=== PATIENT | male | born 1980 | race Caucasian/White ===

== ENCOUNTER 2016-02-28 14:21 | Inpatient (IN) ==
[2016-02-28] MEDS ORDERED: *HR* LORazepam 2 MG/ML VIAL IM PRN (14:37)
[2016-02-28] MEDS ORDERED: Mag Hydrox/Al Hydrox/Simeth 30 ML UDC PO PRN (14:37)
[2016-02-28] MEDS ORDERED: Haloperidol Lactate 5 MG/ML VIAL IM PRN (14:37)
[2016-02-28] MEDS ORDERED: *HR* LORazepam 1 MG TABLET PO PRN (14:37)
[2016-02-28] MEDS ORDERED: MOM Conc 10 ML UD.LIQ PO PRN (14:37)
[2016-02-28] MEDS ORDERED: Ibuprofen 400 MG TABLET PO PRN (14:37)
[2016-02-28] MEDS: clonazePAM 0.5 MG TABLET PO PRN ×2 (15:23→21:02)
[2016-02-28] MEDS: traZODone 50 MG TABLET PO PRN (21:02)
[2016-02-28] MEDS: Lithium Carbonate 300 MG CAPSULE PO SCH (21:02)
[2016-02-29] MEDS: amLODIPine 5 MG TABLET PO SCH (09:48)
[2016-02-29] MEDS: clonazePAM 0.5 MG TABLET PO PRN ×2 (09:50→21:04)
--- NOTE | 2016-02-29 10:47 | Psychiatry History & Physical ---
Date of Encounter: 02/29/16 Time of Encounter: 11:00 History of Present Illness Patient Stated Chief Complaint: "I don't want to live but I guess I don't want to either." Medicare Admission Attestation: For traditional Medicare patients the provided hospital inpatient services are reasonable and necessary and in the case of services not specified as inpatient -only under 42 CFR 419.22 (n), that they are appropriately provided as inpatient services in accordance 42 CFR 412.3. For Critical Access Hospital the patient may reasonably be expected to be discharged or transferred to a hospital within 96 hours after admission to the Critical Access Hospital. Admitted From: Emergency Dept History of Present Illness: Mr. Suarez is a 35 year old male with a long-standing history of alcohol dependence, bipolar disorder type I who presented to the hospital after overdosing on 22 ibuprofen tablets. Patient states that he has been feeling more stressed lately because he will be transitioning to an apartment close to respite rather than living in the respite home. Also, patient's children recently talked to him and told him that they did not want to be a part of his life any longer. Patient has been struggling with depression for many months now. He has multiple admissions in 2016 related to severe depression. He did try ECT at [facility] and underwent 4 treatments but states that the side effects were severe and he does not want ECT any longer. He states that he did take the pills and then immediately told staff that [facility] that he overdosed on medication. He guesses that maybe he does not really want to . However, patient continues to have suicidal ideation on a daily basis and reports today that he feels like he no longer wants to live. He has no hope about medications or other treatments helping with his depression. He denies auditory or visual hallucinations right now. He denies obsessions, delusions, paranoia. Past Med Surg Social Fam HX - Past Medical History Medical history: hyperlipidemia, hypertension - Past Psychiatric History Psychiatric history: Reports: bipolar, prior suicide attempt, previous psychiatric hospitalization Past psychiatric history details: Patient has a history of multiple suicide attempts. He has multiple psychiatric admissions for depressive and manic episodes. Family psychiatric history: Yes Family Psychiatric History Details: Multiple family members have bipolar disorder. Family History of Suicide: Attempted - Past Surgical History Surgical History: no surgical history - Social History Smoking Status: Current every day smoker Smokeless Tobacco Status: No Alcohol use: none Drug use: none Occupational status: disabled Current living situation: Long-Term Activity Level: Independent ambulation - Family History Mother Living Status: Still Living Hx Family Cardiac Disorders: Yes Hx Family Respiratory Disorders: No Hx Family Cancer: No Hx Family GI Disorders: No Hx Family Endocrine Disorder: Yes (Thyroid dx) Hx Family Neuromuscular Disorders: No Hx Family Neurologic Disorders: No Hx Family HEENT Disorders: No Hx Family Autoimmune Disorders: No Medications & Allergies [place] Carbonate 300 mg PO DAILY 11/30/15 [History] Lisinopril [Zestril] 10 mg PO DAILY 02/27/16 [History] Lurasidone HCl [Latuda] 40 mg PO HS 02/27/16 [History] Vortioxetine Hydrobromide [Trintellix] 5 mg PO DAILY 02/27/16 [History] Buspirone HCl [Buspar] 10 mg PO BID #60 tablet 02/28/16 [Rx] ClonazePAM [Klonopin] 0.5 mg PO TID PRN #30 02/28/16 [Rx] Cyanocobalamin (Vitamin B-12) [Vitamin B-12] 100 mcg PO DAILY #90 tablet [Rx] Ergocalciferol (VITAMIN D2) [Drisdol (50,000 Unit)] 50,000 unit PO 2XW #20 capsule 02/28/16 [Rx] Omeprazole [PriLOSEC] 40 mg PO DAILY #30 capsule.dr 02/28/16 [Rx] Phos-NaK [Neutra-Phos] 1 each PO DAILY #30 powd.pack 02/28/16 [Rx] Thiamine HCl 250 mg PO DAILY #30 tablet 02/28/16 [Rx] Allergies No Known Allergies Allergy (Verified 09/24/15 02:06) Review of Systems Constitutional: Denies: fever, chills, weakness, weight change Eyes: Denies: eye pain, vision change Ears, Nose, Throat: Denies: ear pain, throat pain, dental pain, hearing loss, congestion Cardiovascular: Denies: chest pain, palpitations, dyspnea on exertion Respiratory: Denies: cough, dyspnea, wheezes Gastrointestinal: Denies: abdominal pain, nausea, vomiting, diarrhea, constipation Genitourinary male: Denies: urgency, dysuria, frequency, genital lesions Genitourinary female: Denies: urgency, dysuria, frequency, abnormal menses, dyspareunia Musculoskeletal: Denies: joint swelling, joint pain Integumentary: Denies: rash, lesions, pruritus Neurological: Denies: headache, weakness, numbness, memory loss Psychiatric: Reports: depression, abnormal sleep pattern, suicidal ideation, difficulty concentrating, hopelessness, irritability, mood swings. Denies: homicidal ideation Endocrine: Denies: fatigue, heat or cold intolerance Hematologic/Lymphatic: Denies: easy bruising, lymphadenopathy Allergic/Immunologic: Denies: urticaria, itchy eyes Mental Status Exam Patient orientation: Yes Person, Yes Time, Yes Place Level of alertness: Alert Patient appearance: Unkempt Behavior: cooperative, tearful, withdrawn Psychomotor activity: Slowed Eye contact: Minimal Contact Mood description: Depressed Affect description: flat Speech pattern: Normal rate, Normal rhythm, Normal tone Speech volume: Normal Thought process: Intact Thought content: Yes Suicidal ideation, No Homicidal ideation Perceptual disturbances: No Auditory hallucinations, No Visual hallucinations Attention span: Capable of Focused Attention Memory description: Grossly Intact Patient reliability: Reliable Historian Intelligence estimate: Average Judgment: Limited Insight: Minimal Results - Vital Signs Vital signs: Temp Pulse Resp BP 97.9 F 80 18 136/88 02/29/16 09:00 02/29/16 09:00 02/29/16 09:00 02/29/16 09:00 Assessment and Plan (1) Bipolar disorder with severe depression Current visit: No Status: Acute Plan: Admit inpatient for safety and stabilization, Close observation, Suicide Precautions per unit protocol, Encourage participation in unit milieu, Group Therapy, Monitor sleep, Monitor appetite Additional Plan: We will admit to 1 a for psychiatric stabilization. Review outpatient records for complete overview of recent changes in patient's medications. Monitor patient's behavior and encourage group attendance. Encourage positive coping strategies. Restart home medications. Risks, benefits, side effects, alternatives discussed w/pt: Yes Patient agreeable to treatment: Yes Plans for Post Hospital Care: Home Estimated Length of Stay (Days): 3 (2) Anxiety Current visit: No Status: Acute Plan: Admit inpatient for safety and stabilization, Close observation, Suicide Precautions per unit protocol, Encourage participation in unit milieu, Group Therapy, Monitor sleep, Monitor appetite Additional Plan: Continue clonazepam as needed for anxiety. Risks, benefits, side effects, alternatives discussed w/pt: Yes Patient agreeable to treatment: Yes Plans for Post Hospital Care: Home
[2016-02-29] MEDS: Lithium Carbonate 300 MG CAPSULE PO SCH (21:05)
[2016-02-29] MEDS: traZODone 50 MG TABLET PO PRN (21:05)
[2016-03-01] MEDS: amLODIPine 5 MG TABLET PO SCH (08:32)
[2016-03-01] MEDS: clonazePAM 0.5 MG TABLET PO PRN ×3 (08:32→20:42)
[2016-03-01] MEDS: Nicotine 2 MG GUM BC PRN ×2 (09:04→17:06)
--- NOTE | 2016-03-01 13:24 | Psychiatry Progress Note ---
Date of Encounter: 03/01/16 Time of Encounter: 13:00 Subjective Interval history: Kamala is seen today for follow-up. He reports that he does still feel depressed and he struggles with his hopelessness. He denies wanting to kill himself today. Patient states that he talked to his daughter and his daughter may him feel more hopeful. Patient continues to struggle with concerns about moving to an apartment from living at the longterm. Patient states that he worries that he has become institutionalized because of how often he has been admitted before in group homes. He is fearful that he will be able to take care of himself when he is on his own. Encourage the patient to start thinking about what will need to be done when he has an apartment. Discussed patient should make a list of things she needs to accomplish before he feels ready to move to an apartment. Patient reports that he has when he returns back to the respite he will probably have restricted ability to leave the area as he overdosed by telling the staff at [facility] that he was going for a walk. Review of Systems Psychiatric: Reports: depression, abnormal sleep pattern, difficulty concentrating, hopelessness, irritability, mood swings. Denies: homicidal ideation Objective: Exam Patient orientation: Yes Person, Yes Time, Yes Place Level of alertness: Alert Patient appearance: Well-nourished, Unkempt Behavior: calm, cooperative, withdrawn Psychomotor activity: Slowed Eye contact: Minimal Contact Mood description: Depressed Affect description: constricted, flat Speech pattern: Normal rate, Normal rhythm, Normal tone Speech volume: Normal Thought process: Intact Thought content: No Suicidal ideation, No Homicidal ideation Perceptual disturbances: No Auditory hallucinations, No Visual hallucinations Judgment: Limited Insight: Minimal Results - Vital Signs Vital Signs: Temp Pulse Resp BP 98 F 74 16 121/78 03/01/16 09:00 03/01/16 09:00 03/01/16 09:00 03/01/16 09:00 Assessment and Plan (1) Bipolar disorder with severe depression Current visit: No Status: Acute Plan: Continue hospitalization, Close observation, Suicide Precautions per unit protocol, Encourage participation in unit milieu, Group Therapy, Monitor sleep, Monitor appetite Additional Plan: Patient seems to be improving without medication changes. We will continue to monitor and try to contact patient's outpatient provider about possible medication changes need to be made. Patient is on Tintellix outside of the hospital. We could consider increasing the dosage when he returns to place an adult clinic. Continue to monitor behavior and encourage group attendance. Encouraged patient to plan ahead and continue using his coping skills to decrease anxiety level. Risks, benefits, side effects, alternatives discussed w/pt: Yes Patient agreeable to treatment: Yes (2) Anxiety Current visit: No Status: Acute Plan: Continue hospitalization, Close observation, Suicide Precautions per unit protocol, Encourage participation in unit milieu, Group Therapy, Monitor sleep, Monitor appetite Additional Plan: Continue clonazepam as needed for anxiety. Risks, benefits, side effects, alternatives discussed w/pt: Yes Patient agreeable to treatment: Yes Consult Discharge Plan - Plan Referrals: [facility] [Outside] - 03/06/16 9:20 am (The above appointment is with Dr. Garcia.) [facility] [Outside] (You are returning to respite at [facility] on discharge from the hospital. While there, you will be seen daily by the clinic counselors and director of casework services.)
[2016-03-01] MEDS: Lithium Carbonate 300 MG CAPSULE PO SCH (20:35)
[2016-03-02] MEDS: amLODIPine 5 MG TABLET PO SCH (09:24)
[2016-03-02] MEDS: clonazePAM 0.5 MG TABLET PO PRN ×3 (09:24→21:24)
--- NOTE | 2016-03-02 12:28 | Psychiatry Progress Note ---
Date of Encounter: 03/02/16 Time of Encounter: 11:50 Subjective Interval history: Patient seen today for follow-up. He remains depressed with intermittent suicidal thoughts with no plan. Patient does not appear to be engaging in a lot of the group activities. Encourage the patient to attend groups and try to gain something from them. Patient would like to go back to [facility]. He denies side effects of his current medications. He reports that he was not taking the Trintellix outside of the hospital. "My doctor discontinued this one." Review of Systems Psychiatric: Reports: depression, abnormal sleep pattern, suicidal ideation, difficulty concentrating, hopelessness, irritability, mood swings. Denies: homicidal ideation Objective: Exam Patient orientation: Yes Person, Yes Time, Yes Place Level of alertness: Alert Patient appearance: Well-nourished, Unkempt Behavior: calm, cooperative, withdrawn Psychomotor activity: Slowed Eye contact: Fleeting Contact Mood description: Depressed Affect description: constricted, flat Speech pattern: Normal rate, Normal rhythm, Normal tone Speech volume: Normal Thought process: Intact Thought content: Yes Suicidal ideation, No Homicidal ideation Perceptual disturbances: No Auditory hallucinations, No Visual hallucinations Judgment: Limited Insight: Minimal Results - Vital Signs Vital Signs: Temp Pulse Resp BP 97.9 F 65 16 138/92 03/02/16 09:00 03/02/16 09:00 03/02/16 09:00 03/02/16 09:00 Assessment and Plan (1) Bipolar disorder with severe depression Current visit: No Status: Acute Plan: Continue hospitalization, Close observation, Suicide Precautions per unit protocol, Encourage participation in unit milieu, Group Therapy, Monitor sleep, Monitor appetite Additional Plan: Discussed with patient that he has been on multiple medications and some of the medications that we could try we cannot give him a prescription for initially leaves the hospital. We will increase lithium daily at bedtime. We also discussed the patient needs to be attending group and unit activities as part of his treatment. Continue to monitor closely and facilitate transfer back to respite when patient is stable. Risks, benefits, side effects, alternatives discussed w/pt: Yes Patient agreeable to treatment: Yes (2) Anxiety Current visit: No Status: Acute Plan: Continue hospitalization, Close observation, Suicide Precautions per unit protocol, Encourage participation in unit milieu, Group Therapy, Monitor sleep, Monitor appetite Additional Plan: Continue clonazepam as needed for anxiety. Encourage positive coping strategies. Risks, benefits, side effects, alternatives discussed w/pt: Yes Patient agreeable to treatment: Yes Consult Discharge Plan - Plan Referrals: [facility] [Outside] - 03/06/16 9:20 am (The above appointment is with Dr. Garcia.) [facility] [Outside] (You are returning to respite at [facility] on discharge from the hospital. While there, you will be seen daily by the clinic counselors and casey saw operator.)
[2016-03-02] MEDS: Nicotine 2 MG GUM BC PRN (15:12)
[2016-03-02] MEDS: Lithium Carbonate 300 MG CAPSULE PO SCH (21:24)
[2016-03-03] MEDS: amLODIPine 5 MG TABLET PO SCH (08:44)
--- NOTE | 2016-03-03 12:35 | Psychiatry Progress Note ---
Date of Encounter: 03/03/16 Time of Encounter: 12:14 Subjective Interval history: Patient seen and interviewed. History and physical examination reviewed. Patient continued to endorse hopeless and helpless feelings. His suicidal ideation has started to subside. But patient is still unable to verbalize a safety plan. The patient was counseled extensively regarding coping skills and encouraged to work on a safety plan. Patient is tolerating medications fairly well. Sleep and appetite has improved. Review of Systems Psychiatric: Reports: depression, abnormal sleep pattern, difficulty concentrating, hopelessness, irritability, mood swings. Denies: suicidal ideation, homicidal ideation Objective: Exam Patient orientation: Yes Person, Yes Time, Yes Place Level of alertness: Alert Patient appearance: Well-nourished, Unkempt Behavior: calm, cooperative, withdrawn Psychomotor activity: Slowed Eye contact: Fleeting Contact Mood description: Depressed Affect description: constricted, flat Speech pattern: Normal rate, Normal rhythm, Normal tone Speech volume: Normal Thought process: Intact Thought content: No Suicidal ideation, No Homicidal ideation Perceptual disturbances: No Auditory hallucinations, No Visual hallucinations Judgment: Limited Insight: Minimal Additional Findings: Patient is endorsing hopelessness and helplessness. Unable to verbalize a safety plan and is unable to contract for safety off the unit. Results - Vital Signs Vital Signs: Temp Pulse Resp BP 97.8 F 75 16 126/81 03/03/16 09:00 03/03/16 09:00 03/03/16 09:00 03/03/16 09:00 Assessment and Plan (1) Bipolar disorder, curr episode depressed, severe, w/psychotic features Current visit: No Status: Acute Plan: Continue hospitalization, Close observation, Suicide Precautions per unit protocol, Encourage participation in unit milieu, Group Therapy, Monitor sleep, Monitor appetite, Secure weapons, Family/Supportive other meeting Additional Plan: Continue with the current medication regimen. Encouraged to work on a safety plan. Consult Discharge Plan - Plan Referrals: [facility] [Outside] - 03/06/16 9:20 am (The above appointment is with Dr. Garcia.) [facility] [Outside] (You are returning to respite at [facility] on discharge from the hospital. While there, you will be seen daily by the clinic counselors and housing case manager.)
[2016-03-03] MEDS: clonazePAM 0.5 MG TABLET PO PRN ×2 (12:52→19:48)
[2016-03-03] MEDS: traZODone 50 MG TABLET PO PRN (21:22)
[2016-03-03] MEDS: Lithium Carbonate 300 MG CAPSULE PO SCH (21:22)
[2016-03-04] MEDS: amLODIPine 5 MG TABLET PO SCH (08:57)
[2016-03-04] MEDS: clonazePAM 0.5 MG TABLET PO PRN ×2 (08:59→20:44)
--- NOTE | 2016-03-04 12:17 | Psychiatry Progress Note ---
Date of Encounter: 03/04/16 Time of Encounter: 11:06 Subjective Interval history: Patient seen and interviewed. He continued to endorse depressive feelings and hopeless thoughts but denies any suicidal ideations. Patient is working on a safety plan and able to verbalize some good coping skills. He is tolerating medications fairly well. We discussed disposition plan patient thinks he will be ready to go back to [facility] tomorrow. He will continue to work on a safety plan. Overall making progress. Possible discharge tomorrow. Review of Systems Psychiatric: Reports: depression, hopelessness. Denies: suicidal ideation, homicidal ideation Objective: Exam Patient orientation: Yes Person, Yes Time, Yes Place Level of alertness: Alert Patient appearance: Well-nourished, Unkempt Behavior: calm, cooperative Psychomotor activity: Slowed Eye contact: Maintains Eye Contact Mood description: Depressed Affect description: constricted Speech pattern: Normal rate, Normal rhythm, Normal tone Speech volume: Normal Thought process: Intact Thought content: No Suicidal ideation, No Homicidal ideation Perceptual disturbances: No Auditory hallucinations, No Visual hallucinations Judgment: Limited Insight: Minimal Results - Vital Signs Vital Signs: Temp Pulse Resp BP 97.7 F 80 16 135/95 03/04/16 09:00 03/04/16 09:00 03/04/16 09:00 03/04/16 09:00 Assessment and Plan (1) Bipolar disorder with severe depression Current visit: No Status: Acute Plan: Continue hospitalization, Close observation, Suicide Precautions per unit protocol, Encourage participation in unit milieu, Group Therapy, Monitor sleep, Monitor appetite Additional Plan: Continue with current regime of medications. Possible discharge tomorrow. Risks, benefits, side effects, alternatives discussed w/pt: Yes Patient agreeable to treatment: Yes (2) Bipolar disorder, curr episode depressed, severe, w/psychotic features Current visit: No Status: Acute Plan: Continue hospitalization, Close observation, Suicide Precautions per unit protocol, Encourage participation in unit milieu, Group Therapy, Monitor sleep, Monitor appetite, Secure weapons, Family/Supportive other meeting (3) Anxiety Current visit: No Status: Acute Plan: Continue hospitalization, Close observation, Suicide Precautions per unit protocol, Encourage participation in unit milieu, Group Therapy, Monitor sleep, Monitor appetite Additional Plan: Anxiety is under good control . Possible discharge tomorrow Risks, benefits, side effects, alternatives discussed w/pt: Yes Patient agreeable to treatment: Yes Consult Discharge Plan - Plan Referrals: [facility] [Outside] - 03/06/16 9:20 am (The above appointment is with Dr. Garcia.) [facility] [Outside] (You are returning to respite at [facility] on discharge from the hospital. While there, you will be seen daily by the clinic counselors and case worker.)
[2016-03-04] MEDS: traZODone 50 MG TABLET PO PRN (20:39)
[2016-03-04] MEDS: Lithium Carbonate 300 MG CAPSULE PO SCH (20:39)
[2016-03-05 08:33] VITALS: BP 134/95
[2016-03-05] MEDS: amLODIPine 5 MG TABLET PO SCH (08:44)
[2016-03-05] MEDS: clonazePAM 0.5 MG TABLET PO PRN ×2 (08:45→13:23)
--- NOTE | 2016-03-05 13:42 | Discharge Summary ---
Date of Encounter: 03/06/16 Time of Encounter: 13:39 Diagnosis - Discharge Diagnosis (1) Bipolar disorder, curr episode depressed, severe, w/psychotic features Priority: Primary Status: Chronic Medications - Discharge Medications Prescriptions: TraZODone 50 mg PO HS PRN #30 tablet PRN Reason: Insomnia [place] Carbonate 300 mg PO DAILY 11/30/15 [History] Lisinopril [Zestril] 10 mg PO DAILY 02/27/16 [History] Lurasidone HCl [Latuda] 40 mg PO HS 02/27/16 [History] Vortioxetine Hydrobromide [Trintellix] 5 mg PO DAILY 02/27/16 [History] Buspirone HCl [Buspar] 10 mg PO BID #60 tablet 02/28/16 [Rx] ClonazePAM [Klonopin] 0.5 mg PO TID PRN #30 02/28/16 [Rx] Cyanocobalamin (Vitamin B-12) [Vitamin B-12] 100 mcg PO DAILY #90 tablet [Rx] Ergocalciferol (VITAMIN D2) [Drisdol (50,000 Unit)] 50,000 unit PO 2XW #20 capsule 02/28/16 [Rx] Omeprazole [PriLOSEC] 40 mg PO DAILY #30 capsule.dr 02/28/16 [Rx] Phos-NaK [Neutra-Phos] 1 each PO DAILY #30 powd.pack 02/28/16 [Rx] Thiamine HCl 250 mg PO DAILY #30 tablet 02/28/16 [Rx] Amlodipine [Norvasc] 10 mg PO DAILY tablet 03/05/16 [Rx] ClonazePAM [Klonopin] 0.5 mg PO TID PRN #0 tablet 03/05/16 [Rx] [place] Carbonate 600 mg PO HS capsule 03/05/16 [Rx] Lurasidone [Latuda] 40 mg PO HS tablet 03/05/16 [Rx] Propranolol [Inderal] 10 mg PO BID tablet 03/05/16 [Rx] TraZODone 50 mg PO HS PRN #30 tablet 03/05/16 [Rx] Allergies No Known Allergies Allergy (Verified 09/24/15 02:06) Provider Date of admission: 02/28/16 14:21 Primary care physician: PCP NO Discharging clinician: Tan Romero Assessment and Plan - Follow up Plan Follow up with: [facility] [Outside] - 03/06/16 9:20 am (The above appointment is with Dr. Garcia.) [facility] [Outside] (You are returning to respite at [facility] on discharge from the hospital. While there, you will be seen daily by the clinic counselors and correctional counselor/case manager.) Disposition: Home, Self-Care Hospital Course Hospital course: Mr. Suarez is a 35 year old male with a long history of bipolar disorder". Some dependence with was admitted for decompensation with his depression and suicidal ideation and feeling helpless and hopeless in addition to being intoxicated. Patient also had some family stress and his children rejected him and did not want to be part of his life. Patient also has a history of noncompliance with treatments and taking medications. On admission patient was placed on his medication as per records he was monitored for withdrawal symptoms from alcohol he was encouraged to participate and activities and group therapy. Initially was resistant to activities later on he reported improved sleep and his moods improved and participated in activities and prior to discharge she was medically stable and denied any suicidal ideation and was interested and motivated to follow up as per his treatment plan and discharge plan and to maintain his sobriety from alcohol as advised. - Time Spent with Patient Total time spent providing and/or coordinating discharge services: Less than 30 minutes Quality - Multiple Antipsychotics Patient discharged on 2 or more antipsychotic medications: No Procedures - Procedures Procedures: Medication Management, Crisis Stabilization, Supportive Therapy, Group Therapy, Psychoeducational Therapy Mental Status Exam - Mental Status Exam Patient orientation: Yes Person, Yes Time, Yes Place Level of alertness: Alert Patient appearance: Well-nourished, Unkempt Behavior: calm, cooperative Psychomotor activity: Slowed Eye contact: Maintains Eye Contact Mood description: Euthymic/stable Affect description: euthymic Speech pattern: Normal rate, Normal rhythm, Normal tone Speech Volume: Normal Thought process: Intact, Goal Oriented Thought Content: No Suicidal ideation, No Homicidal ideation Perceptual Disturbances: No Auditory hallucinations, No Visual hallucinations Judgment: Good Insight: Partial
== END 2016-03-05 16:05 | disposition home or self-care (01) | DRG 753 ==
LOC: SUATTDRO 14:21 → 1ANU 14:21
PROVIDERS: ADMIT Student in an Organized Health Care Education/Training Program; ATTEND Psychiatry & Neurology Psychiatry

== ENCOUNTER 2016-07-13 17:50 | Observation (INO) ==
[2016-07-13 18:50] LABS: Bilirubin,Urine Negative (Negative); Blood,Urine Negative (Negative); Clarity,Urine Clear (Clear); Color,Urine Yellow (Yellow); Glucose,Urine (UA) Normal (Normal); Ketones,Urine Negative (Negative); Leukocyte Esterase,Urine Negative (Negative); Nitrite,Urine Negative (Negative); Protein,Urine Negative (Neg-Trace); Urobilinogen,Urine Normal (Normal)
[2016-07-13 18:55] LABS: Amphetamine Screen,Urine Negative ng/mL (Cutoff=1000); Barbiturate Screen,Urine Negative ng/mL (Cutoff=200); Benzodiazepines Screen,Urine Negative ng/mL (Cutoff=200); Cannabinoid Screen,Urine Negative ng/mL (Cutoff = 50); Cocaine Screen,Urine Negative ng/mL (Cutoff= 300); Opiate Screen,Urine Negative ng/mL (Cutoff=300); Phencyclidine Screen,Urine Negative ng/mL (Cutoff=25)
[2016-07-13 19:01] LABS: Alanine Aminotransferase 54 Units/L (0-55); Albumin/Globulin Ratio 0.9 (1.1-2.2); Alkaline Phosphatase 87 Units/L (38-126); Aspartate Amino Transferase 34 Units/L (5-34); BUN/Creatinine Ratio 13 (6-26); Bilirubin,Indirect 0.7 mg/dL (0.0-1.2); Blood Urea Nitrogen 12 mg/dL (8-26); Calcium 9.8 mg/dL (8.6-10.8); Chloride 101 mEq/L (98-109); Creatine Kinase 52 Units/L (30-200); Globulin 4.7 g/dL (2.4-3.5); Glucose 95 mg/dL (70-99); Osmolality,Calculated 278 (280-300); Potassium 3.9 mEq/L (3.5-4.5); Sodium 134 mEq/L (136-145); eGFR For African Americans > 60 (> 60); eGFR For Non-African Americans > 60 (> 60)
[2016-07-13 19:02] LABS: Albumin 4.3 g/dL (3.5-5.0); Bilirubin,Direct < 0.1 mg/dL (0.0-0.5); Bilirubin,Total 0.8 mg/dL (0.2-1.2)
[2016-07-13 19:05] LABS: Carbon Dioxide 9 mEq/L (19-29)
[2016-07-13] MEDS ORDERED: 0.9 % Sodium Chloride 1,000 ML IVC ONE (19:06)
[2016-07-13 19:16] LABS: Basophils % 0.3 %; Eosinophils # 0.1 K/mcL (0.0-0.6); Eosinophils % 1.5 %; Hematocrit 46.4 % (37.5-50.1); Lymphocytes # 2.5 K/mcL (0.6-4.6); Lymphocytes % 27.4 %; Mean Corpuscular Volume 84.4 fL (83.0-100.0); Mean Platelet Volume 10.7 fL (9.4-12.4); Monocytes # 0.7 K/mcL (0.0-1.3); Monocytes % 7.9 %; Nucleated Red Blood Cells 0.2 /100 WBC (0); Platelet Count 200 K/mcL (140-400); Red Cell Distribution Width 12.4 % (11.5-14.5); Segmented Neutrophils % 61.9 %
[2016-07-13 19:28] LABS: Hemoglobin 15.9 g/dL (12.9-16.9); Neutrophils # 5.6 K/mcL (1.6-8.9)
[2016-07-13 19:30] LABS: Mean Corpuscular Hemoglobin 28.9 pg (28.0-33.3)
[2016-07-13 19:31] LABS: Mean Corpuscular HGB Conc 34.3 g/dL (31.6-35.5)
--- NOTE | 2016-07-13 19:59 | Emergency Department Note ---
Disposition Clinical Impression: Metabolic acidosis, Generalized weakness Disposition: Admitted As Inpatient Referrals: NO,PCP [Primary Care Provider] - Forms: ED Satisfaction Letter Weakness HPI - General Chief complaint: ED Dizziness Stated complaint: Dizziness, weakness, lethargic Time Seen by Provider: 07/13/16 17:56 Source: patient Limitations: no limitations Nursing Notes Reviewed: Yes Vital Signs Reviewed: Yes - History of Present Illness Pt Subjective Complaint: generalized weakness/fatigue Onset (ago): day(s) (3) Duration: constant Location: generalized Pain Scale: 5 Improves with: none Worsens with: none Associated symptoms: Denies: chest pain, confusion, dark stools, fever/chills, headaches, loss of appetite - Related Data Home Medications Medication Instructions Recorded Confirmed [place] Carbonate 300 mg PO DAILY 11/30/15 02/28/16 Lisinopril [Zestril] 10 mg PO DAILY 02/27/16 02/27/16 Lurasidone HCl [Latuda] 40 mg PO HS 02/27/16 02/27/16 Vortioxetine Hydrobromide 5 mg PO DAILY 02/27/16 02/27/16 [Trintellix] Previous Rx's Medication Instructions Recorded Buspirone HCl [Buspar] 10 mg PO BID #60 tablet 02/28/16 Cyanocobalamin (Vitamin B-12) 100 mcg PO DAILY #90 tablet 02/28/16 [Vitamin B-12] Ergocalciferol (VITAMIN D2) 50,000 unit PO 2XW #20 capsule 02/28/16 [Drisdol (50,000 Unit)] Omeprazole [PriLOSEC] 40 mg PO DAILY #30 capsule. 02/28/16 Phos-NaK [Neutra-Phos] 1 each PO DAILY #30 powd.pack 02/28/16 Thiamine HCl 250 mg PO DAILY #30 tablet 02/28/16 clonazePAM [Klonopin] 0.5 mg PO TID PRN #30 02/28/16 [place] Carbonate 600 mg PO HS capsule 03/05/16 Lurasidone [Latuda] 40 mg PO HS tablet 03/05/16 Propranolol [Inderal] 10 mg PO BID tablet 03/05/16 TraZODone 50 mg PO HS PRN #30 tablet 03/05/16 amLODIPine [Norvasc] 10 mg PO DAILY tablet 03/05/16 clonazePAM [Klonopin] 0.5 mg PO TID PRN #0 tablet 03/05/16 Allergies Allergy/AdvReac Type Severity Reaction Status Date / Time No Known Allergies Allergy Verified 09/24/15 02:06 All systems ED: reviewed and negative except as stated. Constitutional: Reports: weakness. Denies: fever, chills Gastrointestinal: Denies: abdominal pain, nausea, vomiting Past Medical History - Past Medical History Source: patient, old records reviewed, nursing notes reviewed Medical history: Reports: hyperlipidemia, hypertension Surgical history: Reports: no surgical history Psychiatric history: Reports: anxiety, bipolar, depression, prior suicide attempt, previous psychiatric hospitalization - Social History Smoking Status: Current every day smoker Smokeless Tobacco Status: No Alcohol use: Reports: rarely Drug use: Reports: none Physical Exam - General Limitations: no limitations General appearance: alert, in no apparent distress - Head Head exam: atraumatic, normocephalic, normal inspection - Eye Eye exam: Present: normal appearance, PERRL, EOMI - Expanded Eye Exam Pupils: Left: reactive - ENT ENT exam: normal exam, normal oropharynx, mucous membranes moist - Expanded ENT Exam External ear exam: Present: normal external inspection Mouth exam: Present: normal external inspection Teeth exam: Present: normal inspection Throat exam: Present: normal inspection - Neck Neck exam: Present: normal inspection, full ROM, trachea midline - Chest Chest inspection: Present: normal inspection, symmetric chest wall rise - Respiratory Respiratory exam: Present: normal lung sounds bilaterally - Cardiovascular Cardiovascular exam: Present: regular rate, normal rhythm, normal heart sounds - Abdominal Exam Abdominal exam: Present: soft, Non-Tender. Absent: tenderness, distention, guarding, rebound, rigidity - Extremities Exam Extremities exam: Present: normal inspection, full ROM. Absent: tenderness, pedal edema - Expanded Upper Extremity Exam Shoulder exam: Present: normal inspection, full ROM Arm exam: Present: normal inspection, full ROM Elbow exam: Present: normal inspection, full ROM Forearm/Wrist exam: Present: normal inspection, full ROM Hand exam: Present: normal inspection, full ROM Vascular exam: Normal: capillary refill, radial pulse - Expanded Lower Extremity Exam Hip/Pelvis exam: Present: normal inspection, full ROM Upper leg exam: Present: normal inspection, full ROM Knee exam: Present: normal inspection, full ROM Lower leg exam: Present: normal inspection, full ROM Ankle exam: Present: normal inspection, full ROM Foot/toe exam: Present: normal inspection, full ROM Neurovascular/Tendon exam: Absent: motor deficit, sensory deficit, tendon deficit - Back Exam Back exam: Present: normal inspection, full ROM. Absent: tenderness - Neurological Exam Neurological exam: Present: alert, oriented X3 - Expanded Neurological Exam Patient oriented to: Present: person, place, time Coma Scale Eye Opening: Spontaneous Coma Scale Motor Response: Obeys Commands Coma Scale Verbal Response: Oriented Coma Scale Total: 15 - Psychiatric Psychiatric exam: Present: normal affect, normal mood - Skin Skin exam: Present: warm, dry, intact, normal color Course Vital Signs Temperature 97.8 F 07/13/16 17:52 Pulse Rate 91 07/13/16 17:52 Respiratory Rate 16 07/13/16 17:52 Blood Pressure 159/101 07/13/16 17:52 O2 Sat by Pulse Oximetry 98 07/13/16 17:52 Temperature 97.8 F 07/13/16 17:52 Pulse Rate 89 07/13/16 20:00 Respiratory Rate 16 07/13/16 20:00 Blood Pressure 163/100 07/13/16 20:00 O2 Sat by Pulse Oximetry 97 07/13/16 20:00 Oxygen Delivery Oxygen Delivery Room Air Weakness - MDM Narrative Medical decision making narrative: Patient denies any ingestion of any toxic substances he states he just feels weak and tired no other complaints although his labs were reviewed sodium level improved we will check salicylates and acetaminophen ABG IV fluids and hospital admission - Differential Diagnosis Differential Diagnosis: Likely: rhabdomyolysis, medication effect, metabolic, thyroid/endocrine disorder - Medical Records Medical records reviewed: Yes I reviewed the patient's medical records. - Lab Data Lab results reviewed: Yes I reviewed the patient's lab results. Result diagrams: 07/13/16 18:31 07/13/16 18:31 Lab Results 07/13/16 07/13/16 07/13/16 Range/Units 18:31 18:31 18:31 WBC 9.1 (4.3-11.1) K/mcL RBC 5.50 (4.19-5.50) M/mcL Hgb 15.9 (12.9-16.9) g/dL Hct 46.4 (37.5-50.1) % MCV 84.4 (83.0-100.0) fL MCH 28.9 (28.0-33.3) pg MCHC 34.3 (31.6-35.5) g/dL RDW 12.4 (11.5-14.5) % Plt Count 200 (140-400) K/mcL MPV 10.7 (9.4-12.4) fL Immature Gran % 1.0 (0-4) % Seg Neutrophils % 61.9 % Lymphocytes % 27.4 % Monocytes % 7.9 % Eosinophils % 1.5 % Basophils % 0.3 % Neutrophils # 5.6 (1.6-8.9) K/mcL Lymphocytes # 2.5 (0.6-4.6) K/mcL Monocytes # 0.7 (0.0-1.3) K/mcL Eosinophils # 0.1 (0.0-0.6) K/mcL Basophils # 0.0 (0.0-0.2) K/mcL Nucleated RBCs/100 WBC 0.2 H (0) /100 WBC Sodium 134 L (136-145) mEq/L Potassium 3.9 (3.5-4.5) mEq/L Chloride 101 (98-109) mEq/L Carbon Dioxide 9 L* (19-29) mEq/L BUN 12 (8-26) mg/dL Creatinine 0.94 (0.72-1.25) mg/dL Est GFR ( Amer) > 60 (> 60) Est GFR (Non-Af Amer) > 60 (> 60) BUN/Creatinine Ratio 13 (6-26) Glucose 95 (70-99) mg/dL Calculated Osmolality 278 L (280-300) Calcium 9.8 (8.6-10.8) mg/dL Total Bilirubin 0.8 (0.2-1.2) mg/dL Direct Bilirubin < 0.1 (0.0-0.5) mg/dL Indirect Bilirubin 0.7 (0.0-1.2) mg/dL AST 34 (5-34) Units/L ALT 54 (0-55) Units/L Alkaline Phosphatase 87 (38-126) Units/L Creatine Kinase 52 (30-200) Units/L Serum Total Protein 9.0 H (6.0-8.3) g/dL Albumin 4.3 (3.5-5.0) g/dL Globulin 4.7 H (2.4-3.5) g/dL Albumin/Globulin Ratio 0.9 L (1.1-2.2) Urine Color (Yellow) Urine Clarity (Clear) Urine pH (5.0-8.0) pH Units Ur Specific [place] (1.010-1.025) Urine Protein (Neg-Trace) mg/dL Urine Glucose (UA) (Normal) mg/dL Urine Ketones (Negative) mg/dL Urine Blood (Negative) Urine Nitrite (Negative) Urine Bilirubin (Negative) Urine Urobilinogen (Normal) mg/dL Ur Leukocyte Esterase (Negative) Ur Culture Indicated? (NO) Urine Osmolality (300-1090) mOsm/kg Urine Sodium mEq/L Urine Opiates Screen (Pudopu=425) ng/mL Acetaminophen 2.0 L (10-30) mcg/mL Ur Barbiturates Screen (Vajhit=220) ng/mL Ur Phencyclidine Scrn (Cutoff=25) ng/mL Ur Amphetamines Screen (Ocunkc=3986) ng/mL U Benzodiazepines Scrn (Jwepgo=246) ng/mL [place] 0.2 L (0.6-1.2) mEq/L Urine Cocaine Screen (Cutoff= 300) ng/mL U Marijuana (THC) Screen (Cutoff = 50) ng/mL 07/13/16 07/13/16 07/13/16 Range/Units 18:39 18:39 18:39 WBC (4.3-11.1) K/mcL RBC (4.19-5.50) M/mcL Hgb (12.9-16.9) g/dL Hct (37.5-50.1) % MCV (83.0-100.0) fL MCH (28.0-33.3) pg MCHC (31.6-35.5) g/dL RDW (11.5-14.5) % Plt Count (140-400) K/mcL MPV (9.4-12.4) fL Immature Gran % (0-4) % Seg Neutrophils % % Lymphocytes % % Monocytes % % Eosinophils % % Basophils % % Neutrophils # (1.6-8.9) K/mcL Lymphocytes # (0.6-4.6) K/mcL Monocytes # (0.0-1.3) K/mcL Eosinophils # (0.0-0.6) K/mcL Basophils # (0.0-0.2) K/mcL Nucleated RBCs/100 WBC (0) /100 WBC Sodium (136-145) mEq/L Potassium (3.5-4.5) mEq/L Chloride (98-109) mEq/L Carbon Dioxide (19-29) mEq/L BUN (8-26) mg/dL Creatinine (0.72-1.25) mg/dL Est GFR ( Amer) (> 60) Est GFR (Non-Af Amer) (> 60) BUN/Creatinine Ratio (6-26) Glucose (70-99) mg/dL Calculated Osmolality (280-300) Calcium (8.6-10.8) mg/dL Total Bilirubin (0.2-1.2) mg/dL Direct Bilirubin (0.0-0.5) mg/dL Indirect Bilirubin (0.0-1.2) mg/dL AST (5-34) Units/L ALT (0-55) Units/L Alkaline Phosphatase (38-126) Units/L Creatine Kinase (30-200) Units/L Serum Total Protein (6.0-8.3) g/dL Albumin (3.5-5.0) g/dL Globulin (2.4-3.5) g/dL Albumin/Globulin Ratio (1.1-2.2) Urine Color Yellow (Yellow) Urine Clarity Clear (Clear) Urine pH 6.0 (5.0-8.0) pH Units Ur Specific [place] 1.010 (1.010-1.025) Urine Protein Negative (Neg-Trace) mg/dL Urine Glucose (UA) Normal (Normal) mg/dL Urine Ketones Negative (Negative) mg/dL Urine Blood Negative (Negative) Urine Nitrite Negative (Negative) Urine Bilirubin Negative (Negative) Urine Urobilinogen Normal (Normal) mg/dL Ur Leukocyte Esterase Negative (Negative) Ur Culture Indicated? NO (NO) Urine Osmolality 250 L (300-1090) mOsm/kg Urine Sodium 44.0 mEq/L Urine Opiates Screen Negative (Lwzxwx=432) ng/mL Acetaminophen (10-30) mcg/mL Ur Barbiturates Screen Negative (Nwxcjd=818) ng/mL Ur Phencyclidine Scrn Negative (Cutoff=25) ng/mL Ur Amphetamines Screen Negative (Bykyle=2545) ng/mL U Benzodiazepines Scrn Negative (Jayvxf=588) ng/mL [place] (0.6-1.2) mEq/L Urine Cocaine Screen Negative (Cutoff= 300) ng/mL U Marijuana (THC) Screen Negative (Cutoff = 50) ng/mL
[2016-07-13 20:30] LABS: Salicylate < 25.0 mg/dL (15-30)
[2016-07-13 20:40] LABS: ABG HCO3 25.2 mEQ/L (21-27); ABG Oxygen Saturation 97 % (95-98); ABG PCO2 38 mmHg (35-45); ABG PH 7.43 pH Units (7.32-7.45); ABG PO2 91 mmHg (85-104); ABG TCO2 26.4 mEq/L (20-26); Blood Gas FiO2 21 %
[2016-07-13] MEDS ORDERED: Ondansetron 4 MG/2 ML VIAL IVP PRN (21:25)
[2016-07-13] MEDS ORDERED: *HR* LORazepam 1 MG TABLET PO PRN (21:32)
--- NOTE | 2016-07-13 21:44 | Internal Med History&Physical ---
Date of Encounter: 07/13/16 Time of Encounter: 21:38 Assessment and Plan (1) Generalized weakness Current visit: Yes Status: Acute Medication side effect appears to be the most likely cause of patient's symptoms at this time however metabolic derangement is also concerned given that the patient's bicarbonate was 9 on BMP. However this is incongruent with his normal ABG. We will recheck labs. Patient also has a sodium that was 167 3 days ago but has since normalized. 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 Patient's antipsychotic medication Latuda was recently increased so this could be contributing to his symptoms. We will hold this. Patient also takes lithium for the lithium level was low on presentation. Patient is not suicidal at this time and there is no evidence of overdose as the patient lives in a nursing home and his medications are managed by the nursing home staff. Patient would likely benefit from an evaluation by a psychiatrist given his multiple psychiatric diagnoses and medications. (2) Bipolar disorder with severe depression Current visit: No Status: Acute Patient does appear to be depressed at this time. No evidence of gunjan. We will hold his Latuda as discussed above and continue lithium. (3) Essential hypertension Current visit: No Status: Chronic Blood pressure is elevated on presentation, this likely is related to the patient's significant anxiety. We will continue amlodipine and propranolol. (4) Anxiety Current visit: No Status: Acute Patient appears anxious on my exam. Patient reports taking benzodiazepines chronically and taking his last dose at 3 PM today however his urine drug screen is negative for benzodiazepines. We will give Ativan 1 mg 3 times a day when necessary. (5) Alcoholism with alcohol dependence Current visit: No Status: Chronic Patient reports history of drinking but has been sober for the last 3 weeks. He states he was sober for 8 months prior to this but then relapsed for about a month and has since been sober for the last 3 weeks. No evidence of withdrawal symptoms. We will continue to monitor. Qualifiers: Substance use status: unspecified alcohol-induced disorder Qualified Code(s ): F10.29 - Alcohol dependence with unspecified alcohol-induced disorder (6) DVT prophylaxis Current visit: Yes Status: Acute Heparin 5000 units subcutaneous twice a day. Internal Medicine - H&P: HPI Chief complaint: Dizziness Admitted From: Emergency Dept Plans for Post Hospital Care: Home History of present illness: Mr. Suarez is a 35 year old male with history of hypertension, bipolar disorder, generalized anxiety disorder who presents with dizziness and a feeling of "heaviness." Patient states that his dizziness began around 4 PM today and this brought him to the hospital. States he has never felt like this before. He also complains of a "heaviness" feeling. He describes this as feeling like there is 100 pound weight on his back and it is difficult to walk around and do his ADLs because of this feeling. He states this has been going on for several months and has gradually been getting worse. He has seen several other providers including psychiatry who feel this is related to his depression. He is however still able to complete his ADLs. He reports associated mild shortness of breath with this. Patient is eating and drinking well and reports polyuria and polydipsia. He denies any fever, chills, chest pain, nausea, vomiting, diarrhea, numbness, tingling. Patient reports frequent bowel movements which is chronic for him, these are formed and loose. Patient reports a history of 2 suicide attempts, most recent in February 2016. Patient states that he has occasional suicidal thoughts, most recently a week ago but he is not suicidal at this time. Past Med Surg Social Fam HX - Past Medical History Medical history: hyperlipidemia, hypertension Psychiatric history: anxiety, bipolar, depression, prior suicide attempt, previous psychiatric hospitalization - Past Surgical History Surgical History: no surgical history - Social History Smoking Status: Current every day smoker Smokeless Tobacco Status: No Alcohol use: rarely Drug use: none - Family History Mother Living Status: Still Living Hx Family Cardiac Disorders: Yes Hx Family Respiratory Disorders: No Hx Family Cancer: No Hx Family GI Disorders: No Hx Family Endocrine Disorder: Yes (Thyroid dx) Hx Family Neuromuscular Disorders: No Hx Family Neurologic Disorders: No Hx Family HEENT Disorders: No Hx Family Autoimmune Disorders: No Internal Medicine - H&P: Meds [place] Carbonate 300 mg PO BID 11/30/15 [History] Cyanocobalamin (Vitamin B-12) [Vitamin B-12] 100 mcg PO DAILY #90 tablet [Rx] Ergocalciferol (VITAMIN D2) [Drisdol (50,000 Unit)] 50,000 unit PO 2XW #20 capsule 02/28/16 [Rx] Thiamine HCl 250 mg PO DAILY #30 tablet 02/28/16 [Rx] amLODIPine [Norvasc] 10 mg PO DAILY tablet 03/05/16 [Rx] clonazePAM [Klonopin] 0.5 mg PO TID PRN #0 tablet 03/05/16 [Rx] BuPROPion XL (24 HR) [Wellbutrin XL] 150 mg PO DAILY 07/13/16 [History] Folic Acid 2 mg PO DAILY 07/13/16 [History] Lurasidone HCl [Latuda] 80 mg PO HS 07/13/16 [History] Propranolol [Inderal] 30 mg PO BID 07/13/16 [History] Sodium Fluoride [Dentagel] 1 appl DT DAILY 07/13/16 [History] Allergies No Known Allergies Allergy (Verified 09/24/15 02:06) All Systems PM: A 10-system review of systems was performed and is negative for pertinent findings except as documented above in the HPI. - Constitutional Constitutional: lethargy, weakness, no chills, no fever(s) - EENT Eyes: no blurry vision, no change in vision Nose, mouth and throat: no sinus pain, no sinus pressure, no sore throat - Cardiovascular Cardiovascular ROS IM: dyspnea, no chest pain, no edema, no lightheadedness, no orthopnea, no palpitations - Respiratory Respiratory: dyspnea, no cough, no hemoptysis, no chest congestion, no excessive phlegm production, no change in phlegm color - Gastrointestinal Gastrointestinal: no abdominal pain, no change in bowel habits, no diarrhea, no nausea, no vomiting - Genitourinary Genitourinary ROS male: urinary frequency, no dysuria, no hematuria, no urinary hesitancy, no urinary incontinence, no urinary urgency - Musculoskeletal Musculoskeletal ROS IM: muscle weakness, no numbness, no tingling - Integumentary Integumentary IM: no new lesions - Neurological Neurological ROS: dizziness, weakness, no frequent falls, no headache(s), no numbness, no tingling - Psychiatric Psychiatric: anxiety, depression, no homicidal ideation, no suicidal ideation, no visual hallucinations - Endocrine Endocrine IM: polydipsia, polyuria - Hematologic/Lymphatic Hematologic/Lymphatic: no easy bleeding - Constitutional Vitals: Temp Pulse Resp BP Pulse Ox 97.8 F 89 16 163/100 97 07/13/16 17:52 07/13/16 20:00 07/13/16 20:00 07/13/16 20:00 07/13/16 20:00 General appearance: Present: A&O X 3 Exam: Anxious appearing - Head Head exam: Present: atraumatic, normal inspection, normocephalic - Eye Eye exam: Present: EOMI, PERRL - ENT ENT exam: Present: mucous membranes moist - Respiratory Respiratory exam: Present: CTAB. Absent: rales, rhonchi, wheezes, tachypnea - Cardiovascular Cardiovascular exam: Present: RRR. Absent: gallop, rubs, systolic murmur - GI/Abdominal GI/Abdominal exam: Present: normal bowel sounds, soft. Absent: distended, tenderness - Extremities Exam Extremities exam: Present: warm. Absent: pedal edema, tenderness - Neurological Exam Neurological exam: Present: alert, CN II-XII intact, oriented X3, reflexes normal, no focal deficits, strengths equal and symetr throughout. Absent: motor sensory deficit, facial droop, speech deficit - Psychiatric Psychiatric exam: Present: anxious, depressed. Absent: agitated, homicidal ideation, manic, suicidal ideation Internal Med - H&P Results - Labs CBC & Chem 7: 07/13/16 18:31 07/13/16 18:31
[2016-07-13 22:26] LABS: Alanine Aminotransferase 52 Units/L (0-55); Albumin/Globulin Ratio 0.8 (1.1-2.2); Alkaline Phosphatase 80 Units/L (38-126); BUN/Creatinine Ratio 10 (6-26); Blood Urea Nitrogen 10 mg/dL (8-26); Calcium 9.5 mg/dL (8.6-10.8); Chloride 101 mEq/L (98-109); Glucose 89 mg/dL (70-99); Osmolality,Calculated 279 (280-300); Sodium 135 mEq/L (136-145); Total Protein 9.1 g/dL (6.0-8.3); eGFR For African Americans > 60 (> 60); eGFR For Non-African Americans > 60 (> 60)
[2016-07-13 22:27] LABS: Albumin 4.1 g/dL (3.5-5.0); Aspartate Amino Transferase 38 Units/L (5-34); Bilirubin,Total 0.7 mg/dL (0.2-1.2); Magnesium 3.3 mg/dL (1.6-2.6)
[2016-07-13 22:30] LABS: Carbon Dioxide 10 mEq/L (19-29)
[2016-07-13] MEDS: 0.9 % Sodium Chloride 1,000 ML IVC SCH (22:43)
[2016-07-13] MEDS ORDERED: clonazePAM 0.5 MG TABLET PO PRN (23:41)
--- NOTE | 2016-07-14 00:18 | Event Note ---
Date of Encounter: 07/13/16 Time of Encounter: 23:30 Patient has been evaluated along with medical assistant float. I agree with detailed assessment and plan per Resident's H&P. 35 year old male with h/o- bipolar disorder, depression and anxiety, admitted with c/o- feeling 'heavy, rigid and difficult to move' that has been ongoing for a few months now, along with new onset of dizziness that started today. ROS is essentially negative. Labs were WNL except low serum bicarbonate with normal serum creatinine, low normal sodium, low urine osmolality. Patient seen and examined at bedside. Alert and oriented, appears depressed with flat affect, slightly anxious. Chest- S1, S2 heard; lungs are clear to auscultation B/L Extremities- full ROM, no pedal edema No focal neurological deficits Anion gap metabolic acidosis- unclear etiology. ABG shows normal pH and normal bicarbonate, however serum bicarbonate is 9 on BMP. Urine drug screen is negative, salicylate and alcohol level normal, lithium level 0.2. Will check lactic acid level, low suspicion. Start IV hydration with NS. Monitor urine output. Consult Nephrology if no improvement; Dizziness- orthostatic vitals negative for orthostatic hypotension. Patient is hemodynamically stable. Likely related to multiple psychiatric medications; dose of Latuda has been recently increased by his Psychiatrist; will hold this at this time. Hyponatremia- patient had hypernatremia in 160s about 2 days prior to this presentation, ?dehydration ?DI due to [place] use. Serum sodium is low normal today, with low urine osmolality, could be ongoing DI or primary polydipsia? Continue to monitor.
[2016-07-14 00:50] LABS: Basophils % 0.4 %; Eosinophils # 0.1 K/mcL (0.0-0.6); Eosinophils % 1.7 %; Immature Granulocytes % 0.9 % (0-4); Lymphocytes # 2.4 K/mcL (0.6-4.6); Lymphocytes % 33.4 %; Mean Corpuscular HGB Conc 36.7 g/dL (31.6-35.5); Mean Corpuscular Hemoglobin 31.5 pg (28.0-33.3); Mean Corpuscular Volume 85.9 fL (83.0-100.0); Mean Platelet Volume 10.7 fL (9.4-12.4); Monocytes # 0.5 K/mcL (0.0-1.3); Monocytes % 7.7 %; Neutrophils # 3.9 K/mcL (1.6-8.9); Platelet Count 132 K/mcL (140-400); Red Blood Count 4.89 M/mcL (4.19-5.50); Red Cell Distribution Width 12.2 % (11.5-14.5); Segmented Neutrophils % 55.9 %
[2016-07-14 00:54] LABS: Hemoglobin 15.4 g/dL (12.9-16.9)
[2016-07-14 01:08] LABS: BUN/Creatinine Ratio 14 (6-26); Blood Urea Nitrogen 12 mg/dL (8-26); Calcium 8.9 mg/dL (8.6-10.8); Carbon Dioxide 25 mEq/L (19-29); Chloride 105 mEq/L (98-109); Glucose 90 mg/dL (70-99); Osmolality,Calculated 281 (280-300); Sodium 136 mEq/L (136-145); eGFR For African Americans > 60 (> 60); eGFR For Non-African Americans > 60 (> 60)
[2016-07-14 01:13] LABS: Cholesterol 569 mg/dL (< 200)
[2016-07-14 01:35] LABS: Triglycerides 2937 mg/dL (< 150)
[2016-07-14] MEDS: 0.9 % Sodium Chloride 1,000 ML IVC SCH (05:58)
[2016-07-14] MEDS: *HR* Heparin 5,000 UNIT/ML VIAL SQ SCH ×2 (05:58→17:14)
[2016-07-14 08:36] LABS: Amylase 47 Units/L (25-125); Lipase 59 Units/L (8-78)
[2016-07-14 08:42] LABS: Hemoglobin A1C 4.8 %
[2016-07-14 09:03] LABS: C-Reactive Protein 4 mg/L (Less than 5)
[2016-07-14] MEDS: Lithium Carbonate 300 MG CAPSULE PO SCH ×2 (09:24→21:13)
[2016-07-14] MEDS: Folic Acid 1 MG TABLET PO SCH (09:24)
[2016-07-14] MEDS: BuPROPion XL (24 HR) 150 MG TABLET PO SCH (09:25)
[2016-07-14] MEDS: amLODIPine 5 MG TABLET PO SCH (09:25)
[2016-07-14] MEDS: Thiamine (B-1) 100 MG TABLET PO SCH (09:25)
--- NOTE | 2016-07-14 10:35 | Internal Med Progress Note ---
Date of Encounter: 07/14/16 Time of Encounter: 09:30 - Assessment and plan (1) Dizziness Current Visit: Yes Status: Acute Assessment and plan: Patient denied dizziness during my examination but had shortness thereafter with his nurse. Continue to hold Latuda. Low serum bicarbonate, hyponatremia and hypoosmolality all resolved. Mood and affect appropriate. We will observe her overnight and likely discharged tomorrow back to the [facility] pending clinical outcomes. (2) Hyponatremia with decreased serum osmolality Current Visit: Yes Status: Resolved (3) Depression Current Visit: No Status: Chronic Assessment and plan: Denies suicidal ideation Qualifiers: Depression Type: major depressive disorder Major depression recurrence: recurrent Active/Remission status: in remission of unspecified degree Qualified Code(s): F33.40 - Major depressive disorder, recurrent, in remission, unspecified (4) Pancreatitis Current Visit: No Status: Ruled-out Assessment and plan: Ruled out. Patient denies abdominal pain. Amylase lipase normal. (5) Essential hypertension Current Visit: No Status: Chronic Assessment and plan: Hypertensive upon arrival, now normotensive. Home medication propanolol 30 mg twice a day, amlodipine 10 mg daily have been continued. We will continue to trend (6) Hypertriglyceridemia Current Visit: No Status: Chronic Assessment and plan: Triglyceride levels near 3000. Patient stating he is aware that his triglycerides have been in the thousands for quite some time. However, he has not on any medication, will initiate high-dose statin therapy, total cholesterol also elevated. Also, beta blockers other than carvedilol can cause hypertriglyceridemia, recommend possible change to carvedilol at the discretion of his primary care provider. (7) Dyslipidemia Current Visit: No Status: Chronic (8) Nicotine dependence with nicotine-induced disorder Current Visit: No Status: Chronic Assessment and plan: Declines counseling Qualifiers: Nicotine product type: cigarettes Qualified Code(s): F17.219 - Nicotine dependence, cigarettes, with unspecified nicotine-induced disorders (9) Obesity (BMI 30-39.9) Current Visit: No Status: Chronic (10) Bipolar disorder with severe depression Current Visit: No Status: Chronic Assessment and plan: Patient denies a suicidal ideation. Mood and affect stable. (11) High anion gap metabolic acidosis Current Visit: No Status: Resolved (12) DVT prophylaxis Current Visit: Yes Status: Acute Assessment and plan: Subcutaneous heparin - Subjective Interval history: Patient seen and examined. On examination, patient initially asleep supine in bed and awakened easily to voice. Once awake, he denies pain at this time. He states he still feels heavy. He currently denies dizziness but shortly after I left the room, he ate breakfast into his nurse that he was dizzy again. - Constitutional Vitals: Temp Pulse Resp BP Pulse Ox 97.7 F 84 16 127/77 96 07/14/16 07:38 07/14/16 07:38 07/14/16 07:38 07/14/16 07:38 07/14/16 07:38 General appearance: Present: A&O X 3, pleasant, no acute distress, answers questions appropriately - Head Head exam: Present: atraumatic, normocephalic - Eye Eye exam: Present: PERRL, conjuntiva pink, sclera anicteric Pupils: Present: PERRL - Neck Neck exam general surgery: Present: supple, trachea midline. Absent: lymphadenopathy - Respiratory Respiratory exam: Present: decreased breath sounds. Absent: accessory muscle use, rales, respiratory distress, rhonchi, wheezes - Cardiovascular Cardiovascular exam: Present: RRR, +S1, +S2. Absent: diastolic murmur, gallop, rubs, systolic murmur - GI/Abdominal GI/Abdominal exam: Present: normal bowel sounds, soft, no peritoneal signs. Absent: distended, tenderness - Extremities Exam Extremities exam: Present: warm, radial pulses palpable and symetrical. Absent : calf tenderness, cyanotic, pedal edema - Neurological Exam Neurological exam: Present: alert, CN II-XII intact, oriented X3, no focal deficits, strengths equal and symetr throughout. Absent: pronater drift, facial droop, speech deficit - Skin Skin exam: Present: dry, intact, normal color, warm Internal Medicine: Result - Labs CBC & Chem 7: 07/14/16 00:39 07/14/16 00:39 Labs: Short CBC 07/14/16 Range/Units 00:39 WBC 7.0 (4.3-11.1) K/mcL Hgb 15.4 (12.9-16.9) g/dL Hct 42.0 (37.5-50.1) % Plt Count 132 L (140-400) K/mcL Neutrophils # 3.9 (1.6-8.9) K/mcL BMP 07/13/16 07/14/16 22:04 00:39 Sodium 135 L 136 Potassium 4.0 4.0 Chloride 101 105 Carbon Dioxide 10 L* 25 D BUN 10 12 Creatinine 1.03 0.88 Glucose 89 90 Calcium 9.5 8.9 Liver Function 07/13/16 Range/Units 22:04 Total Bilirubin 0.7 (0.2-1.2) mg/dL AST 38 H (5-34) Units/L ALT 52 (0-55) Units/L Alkaline Phosphatase 80 (38-126) Units/L Albumin 4.1 (3.5-5.0) g/dL - ABG Interpretation ABG results: ABG ABG pH 7.43 pH Units (7.32-7.45) 07/13/16 20:33 ABG pCO2 38 mmHg (35-45) 07/13/16 20:33 ABG pO2 91 mmHg (85-104) 07/13/16 20:33 ABG O2 Saturation 97 % (95-98) 07/13/16 20:33 Consult Discharge Plan - Plan Referrals: NO,PCP [Primary Care Provider] -
[2016-07-15 03:55] LABS: Basophils % 0.4 %; Eosinophils # 0.1 K/mcL (0.0-0.6); Eosinophils % 1.7 %; Hematocrit 42.4 % (37.5-50.1); Hemoglobin 15.7 g/dL (12.9-16.9); Immature Granulocytes % 0.6 % (0-4); Lymphocytes # 2.6 K/mcL (0.6-4.6); Lymphocytes % 32.1 %; Mean Corpuscular Hemoglobin 31.8 pg (28.0-33.3); Mean Corpuscular Volume 85.8 fL (83.0-100.0); Mean Platelet Volume 10.3 fL (9.4-12.4); Monocytes # 0.7 K/mcL (0.0-1.3); Monocytes % 8.6 %; Neutrophils # 4.6 K/mcL (1.6-8.9); Platelet Count 127 K/mcL (140-400); Red Blood Count 4.94 M/mcL (4.19-5.50); Red Cell Distribution Width 12.2 % (11.5-14.5); Segmented Neutrophils % 56.6 %
[2016-07-15 04:09] LABS: BUN/Creatinine Ratio 12 (6-26); Blood Urea Nitrogen 10 mg/dL (8-26); Calcium 9.1 mg/dL (8.6-10.8); Carbon Dioxide 12 mEq/L (19-29); Chloride 103 mEq/L (98-109); Glucose 92 mg/dL (70-99); Osmolality,Calculated 277 (280-300); Potassium 3.9 mEq/L (3.5-4.5); eGFR For African Americans > 60 (> 60); eGFR For Non-African Americans > 60 (> 60)
[2016-07-15 04:22] LABS: Sodium 134 mEq/L (136-145)
[2016-07-15] MEDS: *HR* Heparin 5,000 UNIT/ML VIAL SQ SCH (06:03)
[2016-07-15] MEDS ORDERED: 0.9 % Sodium Chloride 1,000 ML IVC SCH (08:30)
[2016-07-15] MEDS: Thiamine (B-1) 100 MG TABLET PO SCH (09:28)
[2016-07-15] MEDS: Lithium Carbonate 300 MG CAPSULE PO SCH (09:28)
[2016-07-15] MEDS: Folic Acid 1 MG TABLET PO SCH (09:28)
[2016-07-15] MEDS: amLODIPine 5 MG TABLET PO SCH (09:28)
[2016-07-15] MEDS: BuPROPion XL (24 HR) 150 MG TABLET PO SCH (09:28)
[2016-07-15 14:31] LABS: BUN/Creatinine Ratio 10 (6-26); Blood Urea Nitrogen 10 mg/dL (8-26); Calcium 9.1 mg/dL (8.6-10.8); Carbon Dioxide 12 mEq/L (19-29); Chloride 103 mEq/L (98-109); Glucose 75 mg/dL (70-99); Osmolality,Calculated 280 (280-300); Sodium 136 mEq/L (136-145); eGFR For African Americans > 60 (> 60); eGFR For Non-African Americans > 60 (> 60)
[2016-07-15 15:25] VITALS: BP 132/79
--- NOTE | 2016-07-15 15:44 | Discharge Summary ---
Date of Encounter: 07/15/16 Time of Encounter: 09:30 - Discharge Diagnosis (1) Dizziness Priority: Primary Status: Resolved (2) Hyponatremia with decreased serum osmolality Priority: Primary Status: Resolved (3) Depression Priority: Secondary Status: Chronic Comments: Patient denied suicidal ideation throughout this admission Qualifiers: Depression Type: major depressive disorder Major depression recurrence: recurrent Active/Remission status: in remission of unspecified degree Qualified Code(s): F33.40 - Major depressive disorder, recurrent, in remission, unspecified (4) Pancreatitis Priority: Primary Status: Ruled-out Comments: Ruled out. Qualifiers: Chronicity: acute Pancreatitis type: alcohol induced Acute pancreatitis complication: unspecified Qualified Code(s): K85.20 - Alcohol induced acute pancreatitis without necrosis or infection (5) Essential hypertension Priority: Secondary Status: Chronic Comments: Hypertensive upon arrival, now normotensive. Home medication propanolol 30 mg twice a day, amlodipine 10 mg daily have been continued. Follow-up outpatient. (6) Hypertriglyceridemia Priority: Secondary Status: Chronic Comments: Triglyceride levels near 3000. Patient stating he is aware that his triglycerides have been in the thousands for quite some time. However, he has not on any medication, will initiate high-dose statin therapy, total cholesterol also elevated. Also, beta blockers other than carvedilol can cause hypertriglyceridemia, recommend possible change to carvedilol at the discretion of his primary care provider. (7) Dyslipidemia Priority: Secondary Status: Chronic (8) Nicotine dependence with nicotine-induced disorder Priority: Secondary Status: Chronic Comments: Declined smoking cessation counseling Qualifiers: Nicotine product type: cigarettes Qualified Code(s): F17.219 - Nicotine dependence, cigarettes, with unspecified nicotine-induced disorders (9) Obesity (BMI 30-39.9) Priority: Secondary Status: Chronic (10) Bipolar disorder with severe depression Priority: Secondary Status: Chronic (11) High anion gap metabolic acidosis Priority: Primary Status: Resolved Comments: Compensated. Follow up outpatient. (12) DVT prophylaxis Priority: Primary Status: Acute Comments: Subcutaneous heparin while admitted. - Discharge Medications Prescriptions: Atorvastatin [Lipitor] 80 mg PO HS #60 tablet Home Medications: [place] Carbonate 300 mg PO BID 11/30/15 [History] Cyanocobalamin (Vitamin B-12) [Vitamin B-12] 100 mcg PO DAILY #90 tablet [Rx] Ergocalciferol (VITAMIN D2) [Drisdol (50,000 Unit)] 50,000 unit PO 2XW #20 capsule 02/28/16 [Rx] Thiamine HCl 250 mg PO DAILY #30 tablet 02/28/16 [Rx] amLODIPine [Norvasc] 10 mg PO DAILY tablet 03/05/16 [Rx] clonazePAM [Klonopin] 0.5 mg PO TID PRN #0 tablet 03/05/16 [Rx] BuPROPion XL (24 HR) [Wellbutrin Xl] 150 mg PO DAILY 07/13/16 [History] Folic Acid 2 mg PO DAILY 07/13/16 [History] Lurasidone HCl [Latuda] 80 mg PO HS 07/13/16 [History] Propranolol [Inderal] 30 mg PO BID 07/13/16 [History] Sodium Fluoride [Dentagel] 1 appl DT DAILY 07/13/16 [History] Atorvastatin [Lipitor] 80 mg PO HS #60 tablet 07/15/16 [Rx] Allergies/Adverse Reactions: Allergies No Known Allergies Allergy (Verified 09/24/15 02:06) Date of admission: 07/13/16 21:22 Primary care physician: PCP NO Discharging clinician: Qing Matamoros Anticipated date of discharge: 07/15/16 - Patient Status Disposition: Home, Self-Care Condition: Fair Functional capacity at discharge: independent ambulation Overall status at discharge: patient is back to baseline - Discharge Instructions Follow Up With: NO,PCP [Primary Care Provider] - Additional Instructions: Follow-up with primary care provider and psychiatrist within 1-2 weeks - Diet and Activity Activity: increase activity as tolerated Diet: regular diet Hospital course: Mr. Suarez is a 35 year old male with past medical history of hypertension, bipolar disorder, generalized anxiety disorder, prior suicide attempt, prior psychiatric inpatient, tobacco abuse. Patient also with history of heavy alcohol abuse but he states he has not drank in 3 weeks prior to presentation. Patient presented to the emergency department chief complaint of dizziness 1 day and a feeling of heaviness times several months. Patient stating the dizziness occurred on the afternoon of the day of presentation and he states he never felt like that before. He also complained of a heaviness feeling described as feeling as if there was 100 pound weight on his back making it difficult for him to walk around and do his activities of daily living because of this feeling. He states that this heaviness feeling have been going on for several months and have gradually been getting worse. Patient had seen several other providers including psychiatry who have also my that this was related to his depression. His psychiatrist increased his Latuda a few days prior to this visit. Patient also endorsed mild shortness of breath and polyuria and polydipsia. He is endorsing a normal appetite. He denied fever, chills, chest pain. He also reports frequent bowel movements which is chronic for him. He has a history of 2 prior suicide attempts with the most recent being in February 2016. He denied suicidal ideation. Workup in the emergency department unremarkable except for initially elevated blood pressure and metabolic derangement. Patient was admitted to the hospitalist service for further evaluation and management. Triglycerides noting to be near 3000, patient stating that this is chronic for him and he was started on a high-dose statin therapy. Total cholesterol was also elevated. Beta blockers other than carvedilol can cause hypertriglyceridemia, recommend possible change to carvedilol at the discretion of his primary care providers. Patient had high anion gap metabolic acidosis that resolved during this admission with IV fluids and sodium bicarbonate. Pancreatitis was ruled out, patient has had several bouts in the past, but not during this visit. Amylase and lipase were normal and he denied abdominal pain and was able to tolerate a regular diet. He was admitted and observed over the course of 2 nights and he denied suicidal ideations throughout his admission. His dizziness also resolved. During this admission, his Latuda was held. His hyponatremia and hypoosmolality resolved. He had an upright and steady gait with no focal neurological weakness is present on examination during this admission. Urinalysis negative. Tox screen negative. He was discharged home in stable condition with close outpatient follow-up recommended. He is a alf resident. - Time Spent with Patient Total time spent providing and/or coordinating discharge services: - Constitutional Vitals: Temp Pulse Resp BP Pulse Ox 98.1 F 78 16 132/79 97 07/15/16 15:24 07/15/16 15:24 07/15/16 15:24 07/15/16 15:24 07/15/16 15:24 General appearance: Present: A&O X 3, pleasant, no acute distress, answers questions appropriately - Head Head exam: Present: atraumatic, normocephalic - Eye Eye exam: Present: PERRL, conjuntiva pink, sclera anicteric Pupils: Present: PERRL - Neck Neck exam general surgery: Present: supple, trachea midline. Absent: lymphadenopathy - Respiratory Respiratory exam: Present: CTAB. Absent: accessory muscle use, rales, respiratory distress, rhonchi, wheezes - Cardiovascular Cardiovascular exam: Present: RRR, +S1, +S2. Absent: diastolic murmur, gallop, rubs, systolic murmur - GI/Abdominal GI/Abdominal exam: Present: normal bowel sounds, soft, no peritoneal signs. Absent: distended, tenderness - Extremities Exam Extremities exam: Present: warm, radial pulses palpable and symetrical. Absent : calf tenderness, cyanotic, pedal edema - Neurological Exam Neurological exam: Present: alert, CN II-XII intact, normal gait, oriented X3, no focal deficits, strengths equal and symetr throughout. Absent: pronater drift, facial droop, speech deficit - Psychiatric Psychiatric exam: Present: flat affect. Absent: suicidal ideation - Expanded Psychiatric Exam Focused psych exam: Present: restlessness - Skin Skin exam: Present: dry, intact, normal color, warm
== END 2016-07-15 16:40 | disposition home or self-care (01) ==
LOC: EMEROO 17:50 → 3BNU 17:50
PROVIDERS: ADMIT Nurse Practitioner Family; ATTEND Nurse Practitioner Family

== ENCOUNTER 2016-09-23 22:17 | Inpatient (IN) ==
[2016-09-23 22:57] LABS: Basophils % 0.5 %; Eosinophils # 0.1 K/mcL (0.0-0.6); Eosinophils % 1.7 %; Hematocrit 44.5 % (37.5-50.1); Hemoglobin 15.7 g/dL (12.9-16.9); Immature Granulocytes % 0.5 % (0-4); Lymphocytes # 1.9 K/mcL (0.6-4.6); Lymphocytes % 29.2 %; Mean Corpuscular HGB Conc 35.3 g/dL (31.6-35.5); Mean Corpuscular Hemoglobin 31.3 pg (28.0-33.3); Mean Corpuscular Volume 88.6 fL (83.0-100.0); Mean Platelet Volume 10.6 fL (9.4-12.4); Monocytes # 0.5 K/mcL (0.0-1.3); Neutrophils # 3.9 K/mcL (1.6-8.9); Platelet Count 135 K/mcL (140-400); Red Blood Count 5.02 M/mcL (4.19-5.50); Red Cell Distribution Width 11.9 % (11.5-14.5); Segmented Neutrophils % 60.1 %
--- NOTE | 2016-09-23 23:00 | Emergency Department Note ---
Overdose - MDM Narrative Medical decision making narrative: 36yom with suicidal ideation and attempt by flexeril and gabapentin ingestion, stable, bicarb improved after recheck bmp, LFTs non elevated. planning for placement by 1 A will be signed out to day team for disposition, transfer once placed. - Differential Diagnosis Likely: suicide attempt by multiple drug overdose, intentional overdose - Medical Records Medical records reviewed: Yes I reviewed the patient's medical records. - Lab Data Lab results reviewed: Yes I reviewed the patient's lab results. Result diagrams: 09/23/16 22:44 09/24/16 02:04 Lab Results 09/23/16 09/23/16 09/23/16 Range/Units 22:44 22:44 23:29 WBC 6.5 (4.3-11.1) K/mcL RBC 5.02 (4.19-5.50) M/mcL Hgb 15.7 (12.9-16.9) g/dL Hct 44.5 (37.5-50.1) % MCV 88.6 (83.0-100.0) fL MCH 31.3 (28.0-33.3) pg MCHC 35.3 (31.6-35.5) g/dL RDW 11.9 (11.5-14.5) % Plt Count 135 L (140-400) K/mcL MPV 10.6 (9.4-12.4) fL Immature Gran % 0.5 (0-4) % Seg Neutrophils % 60.1 % Lymphocytes % 29.2 % Monocytes % 8.0 % Eosinophils % 1.7 % Basophils % 0.5 % Neutrophils # 3.9 (1.6-8.9) K/mcL Lymphocytes # 1.9 (0.6-4.6) K/mcL Monocytes # 0.5 (0.0-1.3) K/mcL Eosinophils # 0.1 (0.0-0.6) K/mcL Basophils # 0.0 (0.0-0.2) K/mcL Sodium 137 (136-145) mEq/L Potassium 4.3 (3.5-4.5) mEq/L Chloride 106 (98-109) mEq/L Carbon Dioxide 13 L (19-29) mEq/L BUN 14 (8-26) mg/dL Creatinine 1.07 (0.72-1.25) mg/dL Est GFR ( Amer) > 60 (> 60) Est GFR (Non-Af Amer) > 60 (> 60) BUN/Creatinine Ratio 13 (6-26) Glucose 148 H (70-99) mg/dL Calculated Osmolality 287 (280-300) Calcium 9.4 (8.6-10.8) mg/dL AST (5-34) Units/L ALT (0-55) Units/L Urine Color Yellow (Yellow) Urine Clarity Clear (Clear) Urine pH 5.5 (5.0-8.0) pH Units Ur Specific [place] 1.024 (1.010-1.025) Urine Protein Negative (Neg-Trace) mg/dL Urine Glucose (UA) Normal (Normal) mg/dL Urine Ketones Negative (Negative) mg/dL Urine Blood Trace H (Negative) Urine Nitrite Negative (Negative) Urine Bilirubin Negative (Negative) Urine Urobilinogen Normal (Normal) mg/dL Ur Leukocyte Esterase Negative (Negative) Urine Microscopic RBC 0-3 (0-3) per hpf Urine Microscopic WBC 0-3 (0-3) per hpf Ur Squamous Epith Cells None Seen (None-Few) per lpf Urine Bacteria None Seen (None-Few) per hpf Hyaline Casts None Seen (None-Few) per lpf Salicylates < 5.0 L (15-30) mg/dL Urine Opiates Screen (Qauihs=732) ng/mL Acetaminophen 1.0 L (10-30) mcg/mL Ur Barbiturates Screen (Jzgzba=414) ng/mL Valproic Acid 8.29 L (50-100) mcg/mL Ur Phencyclidine Scrn (Cutoff=25) ng/mL Ur Amphetamines Screen (Ywcquj=2334) ng/mL U Benzodiazepines Scrn (Osjyiv=831) ng/mL Urine Cocaine Screen (Cutoff= 300) ng/mL U Marijuana (THC) Screen (Cutoff = 50) ng/mL Ethyl Alcohol < 10 (0-10) mg/dL 09/23/16 09/24/16 09/24/16 Range/Units 23:29 02:04 02:04 WBC (4.3-11.1) K/mcL RBC (4.19-5.50) M/mcL Hgb (12.9-16.9) g/dL Hct (37.5-50.1) % MCV (83.0-100.0) fL MCH (28.0-33.3) pg MCHC (31.6-35.5) g/dL RDW (11.5-14.5) % Plt Count (140-400) K/mcL MPV (9.4-12.4) fL Immature Gran % (0-4) % Seg Neutrophils % % Lymphocytes % % Monocytes % % Eosinophils % % Basophils % % Neutrophils # (1.6-8.9) K/mcL Lymphocytes # (0.6-4.6) K/mcL Monocytes # (0.0-1.3) K/mcL Eosinophils # (0.0-0.6) K/mcL Basophils # (0.0-0.2) K/mcL Sodium 136 (136-145) mEq/L Potassium 4.3 (3.5-4.5) mEq/L Chloride 105 (98-109) mEq/L Carbon Dioxide 16 L (19-29) mEq/L BUN 14 (8-26) mg/dL Creatinine 0.92 (0.72-1.25) mg/dL Est GFR ( Amer) > 60 (> 60) Est GFR (Non-Af Amer) > 60 (> 60) BUN/Creatinine Ratio 15 (6-26) Glucose 93 (70-99) mg/dL Calculated Osmolality 282 (280-300) Calcium 9.5 (8.6-10.8) mg/dL AST 20 (5-34) Units/L ALT 28 (0-55) Units/L Urine Color (Yellow) Urine Clarity (Clear) Urine pH (5.0-8.0) pH Units Ur Specific [place] (1.010-1.025) Urine Protein (Neg-Trace) mg/dL Urine Glucose (UA) (Normal) mg/dL Urine Ketones (Negative) mg/dL Urine Blood (Negative) Urine Nitrite (Negative) Urine Bilirubin (Negative) Urine Urobilinogen (Normal) mg/dL Ur Leukocyte Esterase (Negative) Urine Microscopic RBC (0-3) per hpf Urine Microscopic WBC (0-3) per hpf Ur Squamous Epith Cells (None-Few) per lpf Urine Bacteria (None-Few) per hpf Hyaline Casts (None-Few) per lpf Salicylates (15-30) mg/dL Urine Opiates Screen Negative (Dkmrba=782) ng/mL Acetaminophen (10-30) mcg/mL Ur Barbiturates Screen Negative (Vbjcpg=685) ng/mL Valproic Acid (50-100) mcg/mL Ur Phencyclidine Scrn Negative (Cutoff=25) ng/mL Ur Amphetamines Screen Negative (Joswzb=2665) ng/mL U Benzodiazepines Scrn Negative (Igcvbm=352) ng/mL Urine Cocaine Screen Positive H (Cutoff= 300) ng/mL U Marijuana (THC) Screen Negative (Cutoff = 50) ng/mL Ethyl Alcohol (0-10) mg/dL - EKG Data EKG attestation: Yes I reviewed and interpreted this EKG. EKG shows normal: sinus rhythm Rate: tachycardia (Sinus tach rate 101 MA 155 QRS [address] segment elevations or depressions) Rhythm: NSR [place]/QRS: normal Overdose HPI - General Chief Complaint: ED Overdose Stated Complaint: si/anxiety/took 10 gabapentin,9 flexeril Time Seen by Provider: 09/23/16 22:31 Limitations: no limitations Nursing Notes Reviewed: Yes Vital Signs Reviewed: Yes - History of Present Illness HPI Narrative: 36yom with ingestion of 10 pills 10mg flexeril and 300mg gabapentin x 10, at 12: 00 suicide attempt. Still +SI denies HI or hallucinations. Hx bipolar on depakote. States his life situation is just too difficult right now. Familiar to 1A service. Reports +dizziness and nausea Denies: CP, SOB, F/C/V/D/C Pt Subjective Complaint: intentional overdose Intent: suicide attempt How Overdose Was Discovered: called 911 Associated symptoms: depression Treatments Prior to Arrival: none - Related Data Home Medications Medication Instructions Recorded Confirmed [place] Carbonate 300 mg PO BID 11/30/15 09/24/16 BuPROPion XL (24 HR) [Wellbutrin 150 mg PO DAILY 07/13/16 09/24/16 Xl] Folic Acid 2 mg PO DAILY 07/13/16 09/24/16 Lurasidone HCl [Latuda] 80 mg PO HS 07/13/16 09/24/16 Propranolol [Inderal] 30 mg PO BID 07/13/16 09/24/16 Sodium Fluoride [Dentagel] 1 appl DT DAILY 07/13/16 09/24/16 Previous Rx's Medication Instructions Recorded Cyanocobalamin (Vitamin B-12) 100 mcg PO DAILY #90 tablet 02/28/16 [Vitamin B-12] Ergocalciferol (VITAMIN D2) 50,000 unit PO 2XW #20 capsule 02/28/16 [Drisdol (50,000 Unit)] Thiamine HCl 250 mg PO DAILY #30 tablet 02/28/16 amLODIPine [Norvasc] 10 mg PO DAILY tablet 03/05/16 clonazePAM [Klonopin] 0.5 mg PO TID PRN #0 tablet 03/05/16 Atorvastatin [Lipitor] 80 mg PO HS #60 tablet 07/15/16 Allergies Allergy/AdvReac Type Severity Reaction Status Date / Time No Known Allergies Allergy Verified 09/23/16 22:26 Review of Systems: 10 Point ROS was performed and negative except as per below or as documented in HPI. Constitutional: Denies: fever Eyes: Denies: eye pain ENT: Denies: nasal congestion CV: Denies: chest pain Resp: Denies: cough, hemoptysis GI: Denies: abdominal pain, hematochezia Denies: dysuria, hematuria MSK: Denies: back pain, neck pain, extremity pain Skin: Denies: new rashes Psych: +SI Neuro: Denies: paresthesias or weakness All systems ED: reviewed and negative except as stated. Review of Systems: As Per HPI Past Medical History - Past Medical History Attestation: Yes The following information was validated with the patient. Source: patient Medical history: Reports: hyperlipidemia, hypertension Surgical history: Reports: no surgical history Psychiatric history: Reports: anxiety, bipolar, depression, prior suicide attempt, previous psychiatric hospitalization - Social History Smoking Status: Current every day smoker Smokeless Tobacco Status: No Alcohol use: Reports: rarely Drug use: Reports: none Physical Exam Constitutional: NAD, vital signs reviewed mild tachy Neck: normal inspection, neck is supple Resp: CTA bilaterally, no resp distress CV: tachycardic no m/g/r GI: normal inspection, soft, no guarding or rigidity Back: normal inspection, no tenderness to palpation Neuro: A&O3, CNII-XII grossly intact, KAMARA Psych: +SI flat affect MSK: no gross deformities, normal ROM UE and LE Skin: on limited exam, skin intact with no rashes or lesions - General General appearance: appears intoxicated Course Course Narrative: 36-year-old male with intentional ingestion, of 10 Flexeril and 10 gabapentin roughly, at 12:00 noon today 11 hours prior to ED presentation, I spoke with poison control in addition to normal psych labs are recommended EKG which we did get his QTc is 387 and QRS is 96 a sinus tachycardia, they recommended office for making sure he is no longer tachycardic and has no other coingestions , and then would be okay medically clear for psychiatric evaluation. - Reevaluation(s) Reevaluation #1: Patient medically cleared for psychiatric evaluation after normal lab work. Time: 01:22 Reevaluation #2: Care signed out to Dr Elizabeth/Meir, pending 1A placement of patient. Time: 06:24 Vital Signs Temperature 97.7 F 09/23/16 22:24 Pulse Rate 109 09/23/16 22:24 Respiratory Rate 16 09/23/16 22:24 Blood Pressure 133/94 09/23/16 22:24 O2 Sat by Pulse Oximetry 96 09/23/16 22:24 Temperature 97.7 F 09/23/16 22:24 Pulse Rate 86 09/24/16 06:00 Respiratory Rate 16 09/24/16 06:00 Blood Pressure 132/90 09/24/16 06:00 O2 Sat by Pulse Oximetry 96 09/24/16 06:00 Oxygen Delivery Oxygen Delivery Room Air Disposition Clinical Impression: Suicidal ideation Cocaine intoxication Qualifiers: Complication of substance-induced condition: with unspecified complication Qualified Code(s): F14.929 - Cocaine use, unspecified with intoxication, unspecified Drug overdose Qualifiers: Encounter type: initial encounter Injury intent: intentional self-harm Qualified Code(s): T50.902A - Poisoning by unspecified drugs, medicaments and biological substances, intentional self-harm, initial encounter Disposition: Still a Patient Condition: Fair Referrals: NONE,PCP [Primary Care Provider] - Forms: ED Satisfaction Letter Time of Disposition: 06:22 S.B.A.R. - S.B.A.R. Transition of Care: Pending Psych Placement by 1A Situation: Demographics, MOA Background: Presenting Complaint, Relevant PMH, Meds, & Allergies Assessment: Vital Signs, Course and respsone to treatment, Exam Concerns, Patient/Family Expectation, Pertinant Lab Results, Outstanding Labs Recommendation: Barrier(s) to disposition, Recommendation based on pending studies, treatments, or consults S.B.A.R. Report Given to: Meir/Glenn Rothman Repor Time: 06:22
--- NOTE | 2016-09-23 23:03 | Emergency Department Note ---
START Narrative - START START: I examined this patient and my medical decision-making was reviewed with the Resident Physician. I agree with the documented findings, disposition and treatment plan as described except to the extent set forth below. suicidal ideation, flexeril ingestion of 10 tabs and 10 tabs of neurontin. will eval here with psych labs ekg ok poison control consulted. see resident note for full details.
[2016-09-23 23:10] LABS: BUN/Creatinine Ratio 13 (6-26); Blood Urea Nitrogen 14 mg/dL (8-26); Calcium 9.4 mg/dL (8.6-10.8); Carbon Dioxide 13 mEq/L (19-29); Chloride 106 mEq/L (98-109); Glucose 148 mg/dL (70-99); Osmolality,Calculated 287 (280-300); Potassium 4.3 mEq/L (3.5-4.5); eGFR For African Americans > 60 (> 60); eGFR For Non-African Americans > 60 (> 60)
[2016-09-23 23:11] LABS: Sodium 137 mEq/L (136-145)
[2016-09-23 23:23] LABS: Ethanol < 10 mg/dL (0-10); Salicylate < 5.0 mg/dL (15-30)
[2016-09-23 23:35] LABS: Bilirubin,Urine Negative (Negative); Blood,Urine Trace (Negative); Clarity,Urine Clear (Clear); Color,Urine Yellow (Yellow); Glucose,Urine (UA) Normal (Normal); Ketones,Urine Negative (Negative); Leukocyte Esterase,Urine Negative (Negative); Nitrite,Urine Negative (Negative); PH,Urine 5.5 pH Units (5.0-8.0); Protein,Urine Negative (Neg-Trace); Specific Gravity,Urine 1.024 (1.010-1.025); Urobilinogen,Urine Normal (Normal)
[2016-09-23 23:37] LABS: Bacteria,Urine None Seen per hpf (None-Few); Hyaline Casts,Urine None Seen per lpf (None-Few); RBC,Urine 0-3 per hpf (0-3); Squamous Epithelial Cell,Urine None Seen per lpf (None-Few); WBC,Urine 0-3 per hpf (0-3)
[2016-09-23 23:41] LABS: Amphetamine Screen,Urine Negative ng/mL (Cutoff=1000); Barbiturate Screen,Urine Negative ng/mL (Cutoff=200); Benzodiazepines Screen,Urine Negative ng/mL (Cutoff=200); Cannabinoid Screen,Urine Negative ng/mL (Cutoff = 50); Cocaine Screen,Urine Positive ng/mL (Cutoff= 300); Opiate Screen,Urine Negative ng/mL (Cutoff=300); Phencyclidine Screen,Urine Negative ng/mL (Cutoff=25)
[2016-09-23] MEDS ORDERED: Acetaminophen 325 MG TABLET PO ONE (23:49)
[2016-09-24 00:12] LABS: Valproate 8.29 mcg/mL (50-100)
[2016-09-24 02:22] LABS: BUN/Creatinine Ratio 15 (6-26); Blood Urea Nitrogen 14 mg/dL (8-26); Calcium 9.5 mg/dL (8.6-10.8); Carbon Dioxide 16 mEq/L (19-29); Chloride 105 mEq/L (98-109); Glucose 93 mg/dL (70-99); Osmolality,Calculated 282 (280-300); Potassium 4.3 mEq/L (3.5-4.5); Sodium 136 mEq/L (136-145); eGFR For African Americans > 60 (> 60); eGFR For Non-African Americans > 60 (> 60)
[2016-09-24 02:23] LABS: Alanine Aminotransferase 28 Units/L (0-55); Aspartate Amino Transferase 20 Units/L (5-34)
[2016-09-24 12:48] LABS: Cholesterol 243 mg/dL (< 200); HDL Cholesterol 22 mg/dL (40-59)
[2016-09-24 12:49] LABS: Triglycerides 1529 mg/dL (< 150)
--- NOTE | 2016-09-24 14:50 | Emergency Department Note ---
Disposition Clinical Impression: Suicidal ideation Cocaine intoxication Qualifiers: Complication of substance-induced condition: with unspecified complication Qualified Code(s): F14.929 - Cocaine use, unspecified with intoxication, unspecified Drug overdose Qualifiers: Encounter type: initial encounter Injury intent: intentional self-harm Qualified Code(s): T50.902A - Poisoning by unspecified drugs, medicaments and biological substances, intentional self-harm, initial encounter Disposition: Admitted As Inpatient Condition: Fair Time of Disposition: 14:50 General Adult HPI - General Chief complaint: ED Overdose Stated complaint: si/anxiety/took 10 gabapentin,9 flexeril Time Seen by Provider: 09/23/16 22:31 Limitations: no limitations Nursing Notes Reviewed: Yes Vital Signs Reviewed: Yes - History of Present Illness Pain Scale: 4 - Related Data Home Medications Medication Instructions Recorded Confirmed [place] Carbonate 300 mg PO BID 11/30/15 09/24/16 Folic Acid 2 mg PO DAILY 07/13/16 09/24/16 Lurasidone HCl [Latuda] 80 mg PO HS 07/13/16 09/24/16 Atorvastatin Calcium [Lipitor] 80 mg PO HS 09/24/16 09/24/16 BuPROPion SR (12 HR) [Wellbutrin 150 mg PO BID 09/24/16 09/24/16 SR] Carvedilol Phosphate [Coreg Cr] 10 mg PO DAILY 09/24/16 09/24/16 Divalproex (12 HR) [Depakote (12 1,000 mg PO HS 09/24/16 09/24/16 HR)] Previous Rx's Medication Instructions Recorded Cyanocobalamin (Vitamin B-12) 100 mcg PO DAILY #90 tablet 02/28/16 [Vitamin B-12] Ergocalciferol (VITAMIN D2) 50,000 unit PO 2XW #20 capsule 02/28/16 [Drisdol (50,000 Unit)] Thiamine HCl 250 mg PO DAILY #30 tablet 02/28/16 amLODIPine [Norvasc] 10 mg PO DAILY tablet 03/05/16 clonazePAM [Klonopin] 0.5 mg PO TID PRN #0 tablet 03/05/16 Allergies Allergy/AdvReac Type Severity Reaction Status Date / Time No Known Allergies Allergy Verified 09/23/16 22:26 Past Medical History - Past Medical History Medical history: Reports: hyperlipidemia, hypertension Surgical history: Reports: no surgical history Psychiatric history: Reports: anxiety, bipolar, depression, prior suicide attempt, previous psychiatric hospitalization - Social History Smoking Status: Current every day smoker Smokeless Tobacco Status: No Alcohol use: Reports: rarely Drug use: Reports: none Physical Exam - General Limitations: no limitations General appearance: appears intoxicated Course - Reevaluation(s) Reevaluation #1: Signed out pending placement. Patient has expressed no concerns. Admitting to psychiatry. Time: 14:50 Vital Signs Temperature 97.7 F 09/23/16 22:24 Pulse Rate 109 09/23/16 22:24 Respiratory Rate 16 09/23/16 22:24 Blood Pressure 133/94 09/23/16 22:24 O2 Sat by Pulse Oximetry 96 09/23/16 22:24 Temperature 97.7 F 09/23/16 22:24 Pulse Rate 86 09/24/16 07:30 Respiratory Rate 0 09/24/16 15:26 Blood Pressure 0/0 09/24/16 15:26 O2 Sat by Pulse Oximetry 96 09/24/16 07:30 Oxygen Delivery Oxygen Delivery Room Air Medical Decision Making - Lab Data Result diagrams: 09/23/16 22:44 09/24/16 02:04 Lab Results 09/23/16 09/23/16 09/23/16 Range/Units 22:44 22:44 23:29 WBC 6.5 (4.3-11.1) K/mcL RBC 5.02 (4.19-5.50) M/mcL Hgb 15.7 (12.9-16.9) g/dL Hct 44.5 (37.5-50.1) % MCV 88.6 (83.0-100.0) fL MCH 31.3 (28.0-33.3) pg MCHC 35.3 (31.6-35.5) g/dL RDW 11.9 (11.5-14.5) % Plt Count 135 L (140-400) K/mcL MPV 10.6 (9.4-12.4) fL Immature Gran % 0.5 (0-4) % Seg Neutrophils % 60.1 % Lymphocytes % 29.2 % Monocytes % 8.0 % Eosinophils % 1.7 % Basophils % 0.5 % Neutrophils # 3.9 (1.6-8.9) K/mcL Lymphocytes # 1.9 (0.6-4.6) K/mcL Monocytes # 0.5 (0.0-1.3) K/mcL Eosinophils # 0.1 (0.0-0.6) K/mcL Basophils # 0.0 (0.0-0.2) K/mcL Sodium 137 (136-145) mEq/L Potassium 4.3 (3.5-4.5) mEq/L Chloride 106 (98-109) mEq/L Carbon Dioxide 13 L (19-29) mEq/L BUN 14 (8-26) mg/dL Creatinine 1.07 (0.72-1.25) mg/dL Est GFR ( Amer) > 60 (> 60) Est GFR (Non-Af Amer) > 60 (> 60) BUN/Creatinine Ratio 13 (6-26) Glucose 148 H (70-99) mg/dL Calculated Osmolality 287 (280-300) Calcium 9.4 (8.6-10.8) mg/dL AST (5-34) Units/L ALT (0-55) Units/L Triglycerides (< 150) mg/dL Cholesterol (< 200) mg/dL LDL Cholesterol, Calc VLDL Cholesterol, Calc HDL Cholesterol (40-59) mg/dL Cholesterol/HDL Ratio (0-4.9) Urine Color Yellow (Yellow) Urine Clarity Clear (Clear) Urine pH 5.5 (5.0-8.0) pH Units Ur Specific [place] 1.024 (1.010-1.025) Urine Protein Negative (Neg-Trace) mg/dL Urine Glucose (UA) Normal (Normal) mg/dL Urine Ketones Negative (Negative) mg/dL Urine Blood Trace H (Negative) Urine Nitrite Negative (Negative) Urine Bilirubin Negative (Negative) Urine Urobilinogen Normal (Normal) mg/dL Ur Leukocyte Esterase Negative (Negative) Urine Microscopic RBC 0-3 (0-3) per hpf Urine Microscopic WBC 0-3 (0-3) per hpf Ur Squamous Epith Cells None Seen (None-Few) per lpf Urine Bacteria None Seen (None-Few) per hpf Hyaline Casts None Seen (None-Few) per lpf Salicylates < 5.0 L (15-30) mg/dL Urine Opiates Screen (Afvpcg=911) ng/mL Acetaminophen 1.0 L (10-30) mcg/mL Ur Barbiturates Screen (Qwkvwi=861) ng/mL Valproic Acid 8.29 L (50-100) mcg/mL Ur Phencyclidine Scrn (Cutoff=25) ng/mL Ur Amphetamines Screen (Efkmnw=8812) ng/mL U Benzodiazepines Scrn (Rwjtdj=289) ng/mL Urine Cocaine Screen (Cutoff= 300) ng/mL U Marijuana (THC) Screen (Cutoff = 50) ng/mL Ethyl Alcohol < 10 (0-10) mg/dL 09/23/16 09/24/16 09/24/16 Range/Units 23:29 02:04 02:04 WBC (4.3-11.1) K/mcL RBC (4.19-5.50) M/mcL Hgb (12.9-16.9) g/dL Hct (37.5-50.1) % MCV (83.0-100.0) fL MCH (28.0-33.3) pg MCHC (31.6-35.5) g/dL RDW (11.5-14.5) % Plt Count (140-400) K/mcL MPV (9.4-12.4) fL Immature Gran % (0-4) % Seg Neutrophils % % Lymphocytes % % Monocytes % % Eosinophils % % Basophils % % Neutrophils # (1.6-8.9) K/mcL Lymphocytes # (0.6-4.6) K/mcL Monocytes # (0.0-1.3) K/mcL Eosinophils # (0.0-0.6) K/mcL Basophils # (0.0-0.2) K/mcL Sodium 136 (136-145) mEq/L Potassium 4.3 (3.5-4.5) mEq/L Chloride 105 (98-109) mEq/L Carbon Dioxide 16 L (19-29) mEq/L BUN 14 (8-26) mg/dL Creatinine 0.92 (0.72-1.25) mg/dL Est GFR ( Amer) > 60 (> 60) Est GFR (Non-Af Amer) > 60 (> 60) BUN/Creatinine Ratio 15 (6-26) Glucose 93 (70-99) mg/dL Calculated Osmolality 282 (280-300) Calcium 9.5 (8.6-10.8) mg/dL AST 20 (5-34) Units/L ALT 28 (0-55) Units/L Triglycerides 1529 H (< 150) mg/dL Cholesterol 243 H (< 200) mg/dL LDL Cholesterol, Calc TNP VLDL Cholesterol, Calc TNP HDL Cholesterol 22 L (40-59) mg/dL Cholesterol/HDL Ratio 11.0 H (0-4.9) Urine Color (Yellow) Urine Clarity (Clear) Urine pH (5.0-8.0) pH Units Ur Specific [place] (1.010-1.025) Urine Protein (Neg-Trace) mg/dL Urine Glucose (UA) (Normal) mg/dL Urine Ketones (Negative) mg/dL Urine Blood (Negative) Urine Nitrite (Negative) Urine Bilirubin (Negative) Urine Urobilinogen (Normal) mg/dL Ur Leukocyte Esterase (Negative) Urine Microscopic RBC (0-3) per hpf Urine Microscopic WBC (0-3) per hpf Ur Squamous Epith Cells (None-Few) per lpf Urine Bacteria (None-Few) per hpf Hyaline Casts (None-Few) per lpf Salicylates (15-30) mg/dL Urine Opiates Screen Negative (Akuyox=954) ng/mL Acetaminophen (10-30) mcg/mL Ur Barbiturates Screen Negative (Rxmgch=839) ng/mL Valproic Acid (50-100) mcg/mL Ur Phencyclidine Scrn Negative (Cutoff=25) ng/mL Ur Amphetamines Screen Negative (Wopovv=4665) ng/mL U Benzodiazepines Scrn Negative (Cldsjl=646) ng/mL Urine Cocaine Screen Positive H (Cutoff= 300) ng/mL U Marijuana (THC) Screen Negative (Cutoff = 50) ng/mL Ethyl Alcohol (0-10) mg/dL
[2016-09-24] MEDS ORDERED: *HR* LORazepam 2 MG/ML VIAL IM PRN ×2 (16:58→17:09)
[2016-09-24] MEDS ORDERED: Mag Hydrox/Al Hydrox/Simeth 30 ML UDC PO PRN (16:58)
[2016-09-24] MEDS ORDERED: Acetaminophen 325 MG TABLET PO PRN (16:58)
[2016-09-24] MEDS ORDERED: Haloperidol Lactate 5 MG/ML VIAL IM PRN (16:58)
[2016-09-24] MEDS ORDERED: *HR* LORazepam 1 MG TABLET PO PRN ×2 (16:58→17:03)
[2016-09-24] MEDS ORDERED: MOM Conc 10 ML UD.LIQ PO PRN (21:00)
[2016-09-24] MEDS: Lithium Carbonate 300 MG CAPSULE PO SCH (21:02)
[2016-09-24] MEDS: hydrOXYzine pamoate 25 MG CAPSULE PO PRN (21:02)
[2016-09-24] MEDS: Divalproex (12 HR) 500 MG TABLET PO SCH (21:02)
[2016-09-24] MEDS: BuPROPion SR (12 HR) 150 MG TABLET PO SCH (21:03)
[2016-09-25] MEDS: LURASIDONE HCL 80 MG PO SCH ×2 (01:06→21:05)
[2016-09-25] MEDS: Thiamine (B-1) 100 MG TABLET PO SCH (09:12)
[2016-09-25] MEDS: Folic Acid 1 MG TABLET PO SCH (09:12)
[2016-09-25] MEDS: Lithium Carbonate 300 MG CAPSULE PO SCH ×2 (09:13→21:02)
[2016-09-25] MEDS: BuPROPion SR (12 HR) 150 MG TABLET PO SCH ×2 (09:14→21:02)
[2016-09-25] MEDS: amLODIPine 5 MG TABLET PO SCH (09:14)
[2016-09-25] MEDS: Cholecalciferol (D-3) 1,000 UNIT TABLET PO SCH (09:14)
[2016-09-25] MEDS: (Cyanocobalamin (Vitamin B-12) [Vitamin B-12] 100 MCG PO SCH (09:29)
--- NOTE | 2016-09-25 12:13 | Psychiatry History & Physical ---
Date of Encounter: 09/25/16 Time of Encounter: 11:40 History of Present Illness Patient Stated Chief Complaint: "I feel so depressed." Medicare Admission Attestation: For traditional Medicare patients the provided hospital inpatient services are reasonable and necessary and in the case of services not specified as inpatient -only under 42 CFR 419.22 (n), that they are appropriately provided as inpatient services in accordance 42 CFR 412.3. For Critical Access Hospital the patient may reasonably be expected to be discharged or transferred to a hospital within 96 hours after admission to the Critical Access Hospital. Admitted From: Emergency Dept Plans for Post Hospital Care: Home History of Present Illness: Mr. Suarez is a 36 year old male with a long-standing history of bipolar disorder, personality disorder, substance abuse and alcohol dependence who presents to the hospital with increasing depression and suicidal ideations. Patient has multiple hospitalizations for severe depression as well as hospitalizations related to manic symptoms. About 2 months ago patient started drinking again. He stated that he began to isolate in his room. Patient reports that he started not talking to people and keeping to himself mainly. Then about a month ago his brother overdosed and . Since that time his symptoms have worsened. He reports continued thoughts of wanting to end his life with no plan at this time. He does state that if he thinks of the plan HERE in the hospital until the staff. Patient is frustrated because he has been on multiple medications and tried multiple treatments without good success. He has been on clonazepam in the past for anxiety and has also been taking this with using alcohol at the same time. He denies withdrawal symptoms today. He reports difficulty motivating, irritability and feelings of hopelessness. Past Med Surg Social Fam HX - Past Medical History Medical history: hyperlipidemia, hypertension - Past Psychiatric History Psychiatric history: Reports: bipolar, depression, prior suicide attempt, previous psychiatric hospitalization Past psychiatric history details: Patient has multiple psychiatric admissions. Last admission was for depression and couple months ago. He has been discharged to the [facility] and was in housing there when he began to drink again. Family psychiatric history: Yes Family Psychiatric History Details: Brother reccently overdosed. Family History of Suicide: Completed - Past Surgical History Surgical History: no surgical history - Social History Smoking Status: Current every day smoker Smokeless Tobacco Status: No Alcohol use: rarely Drug use: none - Family History Mother History Unknown: Yes Adopted: No Living Status: Still Living Hx Family Cardiac Disorders: Yes Hx Family Respiratory Disorders: No Hx Family Cancer: No Hx Family GI Disorders: No Hx Family Endocrine Disorder: Yes (Thyroid dx) Hx Family Neuromuscular Disorders: No Hx Family Neurologic Disorders: No Hx Family HEENT Disorders: No Hx Family Autoimmune Disorders: No Medications & Allergies [place] Carbonate 300 mg PO BID 11/30/15 [History] Cyanocobalamin (Vitamin B-12) [Vitamin B-12] 100 mcg PO DAILY #90 tablet [Rx] Ergocalciferol (VITAMIN D2) [Drisdol (50,000 Unit)] 50,000 unit PO 2XW #20 capsule 02/28/16 [Rx] Thiamine HCl 250 mg PO DAILY #30 tablet 02/28/16 [Rx] amLODIPine [Norvasc] 10 mg PO DAILY tablet 03/05/16 [Rx] clonazePAM [Klonopin] 0.5 mg PO TID PRN #0 tablet 03/05/16 [Rx] Folic Acid 2 mg PO DAILY 07/13/16 [History] Lurasidone HCl [Latuda] 80 mg PO HS 07/13/16 [History] Atorvastatin Calcium [Lipitor] 80 mg PO HS 09/24/16 [History] BuPROPion SR (12 HR) [Wellbutrin SR] 150 mg PO BID 09/24/16 [History] Carvedilol Phosphate [Coreg Cr] 10 mg PO DAILY 09/24/16 [History] Divalproex (12 HR) [Depakote (12 HR)] 1,000 mg PO HS 09/24/16 [History] Allergies No Known Allergies Allergy (Verified 09/23/16 22:26) Review of Systems Constitutional: Denies: fever, chills, weakness, weight change Eyes: Denies: eye pain, vision change Ears, Nose, Throat: Denies: ear pain, throat pain, dental pain, hearing loss, congestion Cardiovascular: Denies: chest pain, palpitations, dyspnea on exertion Respiratory: Denies: cough, dyspnea, wheezes Gastrointestinal: Denies: abdominal pain, nausea, vomiting, diarrhea, constipation Genitourinary male: Denies: urgency, dysuria, frequency, genital lesions Genitourinary female: Denies: urgency, dysuria, frequency, abnormal menses, dyspareunia Musculoskeletal: Reports: myalgia Integumentary: Denies: rash, lesions, pruritus Neurological: Reports: headache Psychiatric: Reports: depression, anxiety, abnormal sleep pattern, suicidal ideation, anhedonia, difficulty concentrating, hopelessness, irritability, mood swings. Denies: auditory hallucinations, visual hallucinations Endocrine: Denies: fatigue, heat or cold intolerance Hematologic/Lymphatic: Denies: easy bruising, lymphadenopathy Allergic/Immunologic: Denies: urticaria, itchy eyes Mental Status Exam Patient orientation: Yes Person, Yes Time, Yes Place Level of alertness: Alert Patient appearance: Unkempt, Disheveled Behavior: calm Psychomotor activity: Slowed Eye contact: Fleeting Contact Mood description: Depressed, Anxious Affect description: congruent with mood Speech pattern: Normal rate, Normal rhythm, Normal tone Speech volume: Normal Thought process: Intact Thought content: Yes Suicidal ideation, No Homicidal ideation Perceptual disturbances: No Auditory hallucinations, No Visual hallucinations Attention span: Capable of Focused Attention Memory description: Grossly Intact Patient reliability: Reliable Historian Intelligence estimate: Average Judgment: Poor Insight: Minimal Exam - HEENT Head exam IM: Present: atraumatic Eye exam IM: Present: EOMI, normal appearance - Neurological Neurological exam IM: Present: CN II-XII intact - Extremities Extremities exam IM: Present: full ROM - Skin Skin exam IM: Present: dry, warm Results - Vital Signs Vital signs: Temp Pulse Resp BP Pulse Ox 97.2 F L 98 16 133/92 96 09/25/16 09:00 09/25/16 09:00 09/25/16 09:00 09/25/16 09:00 09/24/16 07:30 - Labs Labs: Laboratory Last Values WBC 6.5 K/mcL (4.3-11.1) 09/23/16 22:44 RBC 5.02 M/mcL (4.19-5.50) 09/23/16 22:44 Hgb 15.7 g/dL (12.9-16.9) 09/23/16 22:44 Hct 44.5 % (37.5-50.1) 09/23/16 22:44 MCV 88.6 fL (83.0-100.0) 09/23/16 22:44 MCH 31.3 pg (28.0-33.3) 09/23/16 22:44 MCHC 35.3 g/dL (31.6-35.5) 09/23/16 22:44 RDW 11.9 % (11.5-14.5) 09/23/16 22:44 Plt Count 135 K/mcL (140-400) L 09/23/16 22:44 MPV 10.6 fL (9.4-12.4) 09/23/16 22:44 Immature Gran % 0.5 % (0-4) 09/23/16 22:44 Seg Neutrophils % 60.1 % 09/23/16 22:44 Lymphocytes % 29.2 % 09/23/16 22:44 Monocytes % 8.0 % 09/23/16 22:44 Eosinophils % 1.7 % 09/23/16 22:44 Basophils % 0.5 % 09/23/16 22:44 Neutrophils # 3.9 K/mcL (1.6-8.9) 09/23/16 22:44 Lymphocytes # 1.9 K/mcL (0.6-4.6) 09/23/16 22:44 Monocytes # 0.5 K/mcL (0.0-1.3) 09/23/16 22:44 Eosinophils # 0.1 K/mcL (0.0-0.6) 09/23/16 22:44 Basophils # 0.0 K/mcL (0.0-0.2) 09/23/16 22:44 Sodium 136 mEq/L (136-145) 09/24/16 02:04 Potassium 4.3 mEq/L (3.5-4.5) 09/24/16 02:04 Chloride 105 mEq/L (98-109) 09/24/16 02:04 Carbon Dioxide 16 mEq/L (19-29) L 09/24/16 02:04 BUN 14 mg/dL (8-26) 09/24/16 02:04 Creatinine 0.92 mg/dL (0.72-1.25) 09/24/16 02:04 Est GFR ( Amer) > 60 (> 60) 09/24/16 02:04 Est GFR (Non-Af Amer) > 60 (> 60) 09/24/16 02:04 BUN/Creatinine Ratio 15 (6-26) 09/24/16 02:04 Glucose 93 mg/dL (70-99) 09/24/16 02:04 Calculated Osmolality 282 (280-300) 09/24/16 02:04 Calcium 9.5 mg/dL (8.6-10.8) 09/24/16 02:04 AST 20 Units/L (5-34) 09/24/16 02:04 ALT 28 Units/L (0-55) 09/24/16 02:04 Triglycerides 1529 mg/dL (< 150) H 09/24/16 02:04 Cholesterol 243 mg/dL (< 200) H 09/24/16 02:04 LDL Cholesterol, Calc TNP 09/24/16 02:04 VLDL Cholesterol, Calc TNP 09/24/16 02:04 HDL Cholesterol 22 mg/dL (40-59) L 09/24/16 02:04 Cholesterol/HDL Ratio 11.0 (0-4.9) H 09/24/16 02:04 Urine Color Yellow (Yellow) 09/23/16 23:29 Urine Clarity Clear (Clear) 09/23/16 23:29 Urine pH 5.5 pH Units (5.0-8.0) 09/23/16 23:29 Ur Specific [place] 1.024 (1.010-1.025) 09/23/16 23:29 Urine Protein Negative mg/dL (Neg-Trace) 09/23/16 23:29 Urine Glucose (UA) Normal mg/dL (Normal) 09/23/16 23:29 Urine Ketones Negative mg/dL (Negative) 09/23/16 23:29 Urine Blood Trace (Negative) H 09/23/16 23:29 Urine Nitrite Negative (Negative) 09/23/16 23:29 Urine Bilirubin Negative (Negative) 09/23/16 23:29 Urine Urobilinogen Normal mg/dL (Normal) 09/23/16 23:29 Ur Leukocyte Esterase Negative (Negative) 09/23/16 23:29 Urine Microscopic RBC 0-3 per hpf (0-3) 09/23/16 23:29 Urine Microscopic WBC 0-3 per hpf (0-3) 09/23/16 23:29 Ur Squamous Epith Cells None Seen per lpf (None-Few) 09/23/16 23:29 Urine Bacteria None Seen per hpf (None-Few) 09/23/16 23:29 Hyaline Casts None Seen per lpf (None-Few) 09/23/16 23:29 Salicylates < 5.0 mg/dL (15-30) L 09/23/16 22:44 Urine Opiates Screen Negative ng/mL (Cmnwlc=885) 09/23/16 23:29 Acetaminophen 1.0 mcg/mL (10-30) L 09/23/16 22:44 Ur Barbiturates Screen Negative ng/mL (Ibzcpw=654) 09/23/16 23:29 Valproic Acid 8.29 mcg/mL (50-100) L 09/23/16 22:44 Ur Phencyclidine Scrn Negative ng/mL (Cutoff=25) 09/23/16 23:29 Ur Amphetamines Screen Negative ng/mL (Eqogxw=0951) 09/23/16 23:29 U Benzodiazepines Scrn Negative ng/mL (Ikesra=384) 09/23/16 23:29 Urine Cocaine Screen Positive ng/mL (Cutoff= 300) H 09/23/16 23:29 U Marijuana (THC) Screen Negative ng/mL (Cutoff = 50) 09/23/16 23:29 Ethyl Alcohol < 10 mg/dL (0-10) 09/23/16 22:44 Assessment and Plan (1) Bipolar disorder with severe depression Current visit: No Status: Chronic Plan: Admit inpatient for safety and stabilization, Close observation, Suicide Precautions per unit protocol, Encourage participation in unit milieu, Group Therapy, Monitor sleep, Monitor appetite Additional Plan: Restart depakote. Continue lithium and redraw lithium. We will redraw Depakote level once patient has been maintained on this dosage. Encourage group attendance. Risks, benefits, side effects, alternatives discussed w/pt: Yes Patient agreeable to treatment: Yes Estimated Length of Stay (Days): 4 (2) Alcoholism with alcohol dependence Current visit: No Status: Chronic Plan: Admit inpatient for safety and stabilization Additional Plan: Mointer for withdrawal symptoms. We will taper Klonopin. Encourage positive coping strategies. Risks, benefits, side effects, alternatives discussed w/pt: Yes Patient agreeable to treatment: Yes Plans for Post Hospital Care: Home Qualifiers: Substance use status: unspecified alcohol-induced disorder Qualified Code(s ): F10.29 - Alcohol dependence with unspecified alcohol-induced disorder
[2016-09-25] MEDS: clonazePAM 0.5 MG TABLET PO PRN ×2 (14:47→21:02)
--- NOTE | 2016-09-25 16:28 | Electrocardiograph Report ---
[facility] Test Date: 2016-09-23 Pat Name: Kraig Suarez Department: 105 Room: Gender: M Plate Maker: LISA JACKSONB: 1980 Requested By: Сергей Flores Order Number: [id number] Reading MD: January Naqvi DO Measurements Intervals [place] Rate: 101 P: 58 [place]: 155 QRS: 25 QRSD: 96 T: 44 QT: 329 QTc: 387 Interpretive Statements SINUS TACHYCARDIA ABNORMAL RHYTHM ECG Electronically Signed On 09-25-2016 16:26:22 EDT by January Naqvi DO
[2016-09-25] MEDS: Divalproex (12 HR) 500 MG TABLET PO SCH (21:03)
[2016-09-26] MEDS: Thiamine (B-1) 100 MG TABLET PO SCH (08:46)
[2016-09-26] MEDS: Folic Acid 1 MG TABLET PO SCH (08:46)
[2016-09-26] MEDS: BuPROPion SR (12 HR) 150 MG TABLET PO SCH ×2 (08:46→21:01)
[2016-09-26] MEDS: Lithium Carbonate 300 MG CAPSULE PO SCH ×2 (08:47→21:00)
[2016-09-26] MEDS: Cholecalciferol (D-3) 1,000 UNIT TABLET PO SCH (08:47)
[2016-09-26] MEDS: amLODIPine 5 MG TABLET PO SCH (08:48)
[2016-09-26] MEDS: (Cyanocobalamin (Vitamin B-12) [Vitamin B-12] 100 MCG PO SCH (08:52)
[2016-09-26] MEDS: clonazePAM 0.5 MG TABLET PO PRN ×2 (08:53→16:04)
--- NOTE | 2016-09-26 10:11 | Psychiatry Progress Note ---
Date of Encounter: 09/26/16 Time of Encounter: 09:45 Subjective Interval history: Tesfaye is seen today for follow-up and case was discussed with staff. Tesfaye remains depressed and withdrawn to his room. He reports to staff that he knows that the changes in his life but has no desire to this time. He does not think that rehabilitation would help because it has not helped before. He continues to be very upset and saddened by the of his brother. He reports intermittent suicidal ideation with no plan. He does admit he was off his valproate and his lithium for at least a week. Patient has not been interacting or attending groups and we discussed that he needs to do these things in order to start the healing process. Review of Systems Psychiatric: Reports: depression, anxiety, abnormal sleep pattern, suicidal ideation, anhedonia, difficulty concentrating, hopelessness, irritability, mood swings. Denies: auditory hallucinations, visual hallucinations Objective: Exam Patient orientation: Yes Person, Yes Time, Yes Place Level of alertness: Alert Patient appearance: Unkempt Behavior: cooperative Psychomotor activity: Normal Eye contact: Fleeting Contact Mood description: Depressed Affect description: blunted Speech pattern: Normal rhythm, Normal tone, Slowed Speech volume: Normal Thought process: Intact Thought content: Yes Suicidal ideation, No Homicidal ideation Perceptual disturbances: No Auditory hallucinations, No Visual hallucinations Judgment: Limited Insight: Minimal Results - Vital Signs Vital Signs: Temp Pulse Resp BP Pulse Ox 98.2 F 70 16 140/84 96 09/26/16 08:45 09/26/16 08:45 09/26/16 08:45 09/26/16 08:45 09/24/16 07:30 - Drug Levels and Toxicology Drug Levels and Toxicology: Drug Levels and Toxicity 09/26/16 06:51 [place] 0.3 L - Labs Labs: Laboratory Results - last 24 hr 09/26/16 06:51 [place] 0.3 L Assessment and Plan (1) Bipolar disorder with severe depression Current visit: No Status: Chronic Plan: Continue hospitalization, Close observation, Suicide Precautions per unit protocol, Encourage participation in unit milieu, Group Therapy, Monitor sleep, Monitor appetite Additional Plan: Currently patient has been restarted on home meds but is taking 3 different mood stabilizers. We will consider tapering either the Latuda or the lithium but for now restarted at current dosages and monitor patient. He denies side effects at this time. We discussed the effect of alcohol and drugs on his mood. Risks, benefits, side effects, alternatives discussed w/pt: Yes Patient agreeable to treatment: Yes (2) Alcoholism with alcohol dependence Current visit: No Status: Chronic Plan: Continue hospitalization, Close observation, Suicide Precautions per unit protocol, Encourage participation in unit milieu, Group Therapy, Monitor sleep, Monitor appetite Additional Plan: Encourage outpatient rehabilitation for drugs and alcohol. Risks, benefits, side effects, alternatives discussed w/pt: Yes Patient agreeable to treatment: Yes Qualifiers: Substance use status: unspecified alcohol-induced disorder Qualified Code(s ): F10.29 - Alcohol dependence with unspecified alcohol-induced disorder Consult Discharge Plan - Plan Referrals: NONE,PCP [Primary Care Provider] -
[2016-09-26] MEDS: Nicotine 2 MG GUM BC PRN (14:44)
[2016-09-26] MEDS: Divalproex (12 HR) 500 MG TABLET PO SCH (21:00)
[2016-09-27] MEDS: Folic Acid 1 MG TABLET PO SCH (08:11)
[2016-09-27] MEDS: amLODIPine 5 MG TABLET PO SCH (08:11)
[2016-09-27] MEDS: Lithium Carbonate 300 MG CAPSULE PO SCH ×2 (08:11→21:01)
[2016-09-27] MEDS: (Cyanocobalamin (Vitamin B-12) [Vitamin B-12] 100 MCG PO SCH (08:11)
[2016-09-27] MEDS: Thiamine (B-1) 100 MG TABLET PO SCH (08:12)
[2016-09-27] MEDS: Cholecalciferol (D-3) 1,000 UNIT TABLET PO SCH (08:12)
[2016-09-27] MEDS: BuPROPion SR (12 HR) 150 MG TABLET PO SCH ×2 (08:13→21:01)
[2016-09-27 12:39] LABS: Hemoglobin A1C 4.9 %
--- NOTE | 2016-09-27 13:23 | Psychiatry Progress Note ---
Date of Encounter: 09/27/16 Time of Encounter: 09:30 Subjective Interval history: Tesfaye is seen today for follow-up. He continues to feel depressed and suicidal. He reports continued difficulty with motivation. Reports he did go out shower yesterday but according to staff he did refuse several groups. We discussed the importance of group attendance and of participating in things even if he does not feel motivated to. He does not have any exact plan to hurt himself but states the thoughts are "so-so." When asked what this means patient states "they come and they go." Still struggling with grief over the loss of his brother. Review of Systems Psychiatric: Reports: depression, anxiety, abnormal sleep pattern, suicidal ideation, anhedonia, difficulty concentrating, hopelessness, irritability, mood swings. Denies: auditory hallucinations, visual hallucinations Objective: Exam Patient orientation: Yes Person, Yes Time, Yes Place Level of alertness: Alert Patient appearance: Appropriate Behavior: calm, cooperative Psychomotor activity: Normal Eye contact: Minimal Contact Mood description: Depressed Affect description: tearful, dysphoric Speech pattern: Normal rate, Normal rhythm, Normal tone Speech volume: Normal Thought process: Intact Thought content: Yes Suicidal ideation Perceptual disturbances: No Auditory hallucinations, No Visual hallucinations Judgment: Limited Insight: Minimal Results - Vital Signs Vital Signs: Temp Pulse Resp BP Pulse Ox 97.4 F L 88 16 138/97 96 09/27/16 08:13 09/27/16 08:13 09/27/16 08:13 09/27/16 08:13 09/24/16 07:30 - Labs Labs: Laboratory Results - last 24 hr 09/27/16 11:52 Est Mean Plasma Glucose 94 Hemoglobin A1c 4.9 Assessment and Plan (1) Bipolar disorder with severe depression Current visit: No Status: Chronic Plan: Continue hospitalization, Close observation, Suicide Precautions per unit protocol, Encourage participation in unit milieu, Group Therapy, Monitor sleep, Monitor appetite Additional Plan: Continue current meds for now. Patient has been off medications for a while. Consider tapering either Latuda or lithium but we will hold on this for now. Patient is aware he needs to be attending groups. Risks, benefits, side effects, alternatives discussed w/pt: Yes Patient agreeable to treatment: Yes (2) Alcoholism with alcohol dependence Current visit: No Status: Chronic Risks, benefits, side effects, alternatives discussed w/pt: Yes Patient agreeable to treatment: Yes Qualifiers: Substance use status: unspecified alcohol-induced disorder Qualified Code(s ): F10.29 - Alcohol dependence with unspecified alcohol-induced disorder Consult Discharge Plan - Plan Referrals: NONE,PCP [Primary Care Provider] -
[2016-09-27] MEDS: Divalproex (12 HR) 500 MG TABLET PO SCH (21:01)
[2016-09-28] MEDS: Cholecalciferol (D-3) 1,000 UNIT TABLET PO SCH (08:20)
[2016-09-28] MEDS: Folic Acid 1 MG TABLET PO SCH (08:20)
[2016-09-28] MEDS: amLODIPine 5 MG TABLET PO SCH (08:20)
[2016-09-28] MEDS: Lithium Carbonate 300 MG CAPSULE PO SCH ×2 (08:21→20:41)
[2016-09-28] MEDS: Thiamine (B-1) 100 MG TABLET PO SCH (08:22)
[2016-09-28] MEDS: BuPROPion SR (12 HR) 150 MG TABLET PO SCH (08:22)
[2016-09-28] MEDS: (Cyanocobalamin (Vitamin B-12) [Vitamin B-12] 100 MCG PO SCH (08:59)
--- NOTE | 2016-09-28 11:29 | Psychiatry Progress Note ---
Date of Encounter: 09/28/16 Time of Encounter: 10:45 Subjective Interval history: Patient is seen today for follow-up of his depression. Also discussed in treatment team today. Tesfaye reports that he still feels hopeless about life and he does not really want to go to rehabilitation because "I do not want to tell my Ex- I am back in rehabilitation." We discussed the importance of trying to make positive changes and continue those changes. Patient states that he is not sure he can do this. He does not think the lithium and Latuda have been helpful for him. He has had some benefit from the valproate. He reports vague intermittent suicidal ideation without plan. "I am just sick of life." Review of Systems Constitutional: Denies: fever, chills, weakness, weight change Eyes: Denies: eye pain, vision change Ears, Nose, Throat: Denies: ear pain, throat pain, dental pain, hearing loss, congestion Cardiovascular: Denies: chest pain, palpitations, dyspnea on exertion Respiratory: Denies: cough, dyspnea, wheezes Gastrointestinal: Denies: abdominal pain, nausea, vomiting, diarrhea, constipation Musculoskeletal: Denies: joint swelling, joint pain Neurological: Denies: headache, weakness, numbness, memory loss Psychiatric: Reports: depression, anxiety, abnormal sleep pattern, suicidal ideation, anhedonia, difficulty concentrating, hopelessness, irritability. Denies: auditory hallucinations, visual hallucinations Objective: Exam Patient orientation: Yes Person, Yes Time, Yes Place Level of alertness: Alert Patient appearance: Unkempt Behavior: calm, tearful Psychomotor activity: Slowed Eye contact: Diverts Contact Mood description: Depressed Affect description: tearful, dysphoric Speech pattern: Normal rate, Normal rhythm, Normal tone Speech volume: Normal Thought process: Intact Thought content: Yes Suicidal ideation, No Homicidal ideation Perceptual disturbances: No Auditory hallucinations, No Visual hallucinations Judgment: Limited Insight: Minimal Results - Vital Signs Vital Signs: Temp Pulse Resp BP Pulse Ox 97.6 F 94 16 144/99 96 09/28/16 08:31 09/28/16 08:31 09/28/16 08:31 09/28/16 08:31 09/24/16 07:30 - Labs Labs: Laboratory Results - last 24 hr 09/27/16 11:52 Est Mean Plasma Glucose 94 Hemoglobin A1c 4.9 Assessment and Plan (1) Bipolar disorder with severe depression Current visit: No Status: Chronic Plan: Continue hospitalization, Close observation, Suicide Precautions per unit protocol, Encourage participation in unit milieu, Group Therapy, Monitor sleep, Monitor appetite Additional Plan: We will begin tapering Latuda. Continue lithium for now. Continue valproate. Increase Wellbutrin to 450 mg by mouth daily. Continue to encourage group attendance. Risks, benefits, side effects, alternatives discussed w/pt: Yes Patient agreeable to treatment: Yes (2) Alcoholism with alcohol dependence Current visit: No Status: Chronic Plan: Continue hospitalization, Close observation, Suicide Precautions per unit protocol, Encourage participation in unit milieu, Group Therapy, Monitor sleep, Monitor appetite Additional Plan: Continue to encourage rehabilitation on discharge. Risks, benefits, side effects, alternatives discussed w/pt: Yes Patient agreeable to treatment: Yes Qualifiers: Substance use status: unspecified alcohol-induced disorder Qualified Code(s ): F10.29 - Alcohol dependence with unspecified alcohol-induced disorder Consult Discharge Plan - Plan Referrals: [facility] [Outside] (You will see Prerna Henriquez for mental health counseling on 10/09/2016 at 10:00am. You will also see Dr. Anguiano on 10/18/2016 at 6:30pm.)
[2016-09-28] MEDS: clonazePAM 0.5 MG TABLET PO PRN (17:14)
[2016-09-28] MEDS: Divalproex (12 HR) 500 MG TABLET PO SCH (20:41)
[2016-09-29] MEDS: Thiamine (B-1) 100 MG TABLET PO SCH (08:35)
[2016-09-29] MEDS: amLODIPine 5 MG TABLET PO SCH (08:35)
[2016-09-29] MEDS: BuPROPion SR (12 HR) 150 MG TABLET PO SCH (08:35)
[2016-09-29] MEDS: Lithium Carbonate 300 MG CAPSULE PO SCH ×2 (08:36→20:18)
[2016-09-29] MEDS: Folic Acid 1 MG TABLET PO SCH (08:36)
[2016-09-29] MEDS: Cholecalciferol (D-3) 1,000 UNIT TABLET PO SCH (08:36)
[2016-09-29] MEDS: (Cyanocobalamin (Vitamin B-12) [Vitamin B-12] 100 MCG PO SCH (08:59)
--- NOTE | 2016-09-29 13:29 | Psychiatry Progress Note ---
Date of Encounter: 09/29/16 Time of Encounter: 13:00 Subjective Interval history: Patient is seen today for follow-up and also discussed in treatment team. He reports that he realizes he has to start pushing himself to do things he is not motivated to do. We discussed the importance of goal setting and following through with goals and how that helps with self-esteem. We also discussed the importance of continued treatment for substance abuse. Patient states he is ambivalent about going to rehabilitation because part of him does not want to go through that process again. I reviewed realizes it is the next step along his way to improvement in his mood. He discussed that he used to like to hike and walk places and he has not been doing that recently. He also would like to spend more time with his children doing fun things like going on hikes. "I am so tired of feeling this way." Continued intermittent suicidal ideations but this is improving. He is interacting more and out of his room more. Review of Systems Psychiatric: Reports: depression, anxiety, anhedonia, difficulty concentrating, hopelessness, irritability. Denies: auditory hallucinations, visual hallucinations Objective: Exam Patient orientation: Yes Person, Yes Time, Yes Place Level of alertness: Alert Patient appearance: Appropriate, Well Groomed Behavior: calm, cooperative Psychomotor activity: Normal Eye contact: Maintains Eye Contact Mood description: Depressed Affect description: dysphoric Speech pattern: Normal rate, Normal rhythm, Normal tone Speech volume: Normal Thought process: Linear, Goal Oriented Thought content: Yes Suicidal ideation, No Homicidal ideation, No Overt delusions Perceptual disturbances: No Auditory hallucinations, No Visual hallucinations Judgment: Fair Insight: Partial Results - Vital Signs Vital Signs: Temp Pulse Resp BP Pulse Ox 97.1 F L 88 18 125/89 96 09/29/16 08:41 09/29/16 08:41 09/29/16 08:41 09/29/16 08:41 09/24/16 07:30 Assessment and Plan (1) Bipolar disorder with severe depression Current visit: No Status: Chronic Plan: Continue hospitalization, Close observation, Suicide Precautions per unit protocol, Encourage participation in unit milieu, Group Therapy, Monitor sleep, Monitor appetite Additional Plan: Continue tapering Latuda. Continue lithium for now. Continue valproate. Continue Wellbutrin to 450 mg by mouth daily. Continue to encourage group attendance. Risks, benefits, side effects, alternatives discussed w/pt: Yes Patient agreeable to treatment: Yes (2) Alcoholism with alcohol dependence Current visit: No Status: Chronic Plan: Continue hospitalization, Close observation, Suicide Precautions per unit protocol, Encourage participation in unit milieu, Group Therapy, Monitor sleep, Monitor appetite Additional Plan: Continue to encourage substance abuse treatment on discharge. Risks, benefits, side effects, alternatives discussed w/pt: Yes Patient agreeable to treatment: Yes Qualifiers: Substance use status: unspecified alcohol-induced disorder Qualified Code(s ): F10.29 - Alcohol dependence with unspecified alcohol-induced disorder Consult Discharge Plan - Plan Referrals: [facility] [Outside] (You will see Prerna Henriquez for mental health counseling on 10/09/2016 at 10:00am. You will also see Dr. Anguiano on 10/18/2016 at 6:30pm.)
[2016-09-29] MEDS: Divalproex (12 HR) 500 MG TABLET PO SCH (20:18)
[2016-09-30] MEDS: amLODIPine 5 MG TABLET PO SCH (08:26)
[2016-09-30] MEDS: Cholecalciferol (D-3) 1,000 UNIT TABLET PO SCH (08:26)
[2016-09-30] MEDS: Lithium Carbonate 300 MG CAPSULE PO SCH ×2 (08:26→20:49)
[2016-09-30] MEDS: clonazePAM 0.5 MG TABLET PO SCH (08:27)
[2016-09-30] MEDS: Folic Acid 1 MG TABLET PO SCH (08:27)
[2016-09-30] MEDS: Thiamine (B-1) 100 MG TABLET PO SCH (08:28)
[2016-09-30] MEDS: BuPROPion SR (12 HR) 150 MG TABLET PO SCH (08:28)
[2016-09-30] MEDS: (Cyanocobalamin (Vitamin B-12) [Vitamin B-12] 100 MCG PO SCH (08:29)
--- NOTE | 2016-09-30 12:32 | Psychiatry Progress Note ---
Date of Encounter: 09/30/16 Time of Encounter: 10:40 Subjective Interval history: Cristiana is seen today for follow-up of his depression. He reports he is feeling a little bit better today. He denies suicidal ideation. He still somewhat ambivalent about whether or not he wants to attend inpatient rehabilitation. We discussed that he should make a list of potential pros and cons area staff can help him with this. We discussed the importance of sobriety in order to address his mental health improved. He reports he is sleeping well. He has been more active interactive with peers and staff. Review of Systems Psychiatric: Reports: depression, anxiety, anhedonia, difficulty concentrating, hopelessness, irritability. Denies: suicidal ideation, auditory hallucinations , visual hallucinations Objective: Exam Patient orientation: Yes Person, Yes Time, Yes Place Level of alertness: Alert Patient appearance: Appropriate, Well Groomed Behavior: calm, cooperative Psychomotor activity: Normal Eye contact: Maintains Eye Contact Mood description: Depressed (Improving) Affect description: full range (More full range than in previous days.) Speech pattern: Normal rate, Normal rhythm, Normal tone Speech volume: Normal Thought process: Linear, Goal Oriented Thought content: No Suicidal ideation, No Homicidal ideation, No Overt delusions Perceptual disturbances: No Auditory hallucinations, No Visual hallucinations Judgment: Limited Insight: Partial Results - Vital Signs Vital Signs: Temp Pulse Resp BP Pulse Ox 97.8 F 88 18 140/98 96 09/30/16 09:00 09/30/16 09:00 09/30/16 09:00 09/30/16 09:00 09/24/16 07:30 Assessment and Plan (1) Bipolar disorder with severe depression Current visit: No Status: Chronic Plan: Continue hospitalization, Close observation, Suicide Precautions per unit protocol, Encourage participation in unit milieu, Group Therapy, Monitor sleep, Monitor appetite Additional Plan: Continue Latuda taper. We will draw valproic acid and lithium levels tomorrow. Continue to encourage inpatient rehabilitation. Risks, benefits, side effects, alternatives discussed w/pt: Yes Patient agreeable to treatment: Yes (2) Alcoholism with alcohol dependence Current visit: No Status: Chronic Risks, benefits, side effects, alternatives discussed w/pt: Yes Patient agreeable to treatment: Yes Qualifiers: Substance use status: unspecified alcohol-induced disorder Qualified Code(s ): F10.29 - Alcohol dependence with unspecified alcohol-induced disorder Consult Discharge Plan - Plan Referrals: [facility] [Outside] (You will see Prerna Henriquez for mental health counseling on 10/09/2016 at 10:00am. You will also see Dr. Anguiano on 10/18/2016 at 6:30pm.)
[2016-09-30] MEDS: Divalproex (12 HR) 500 MG TABLET PO SCH (20:49)
[2016-09-30] MEDS: hydrOXYzine pamoate 25 MG CAPSULE PO PRN (21:52)
[2016-10-01] MEDS: BuPROPion SR (12 HR) 150 MG TABLET PO SCH (08:44)
[2016-10-01] MEDS: Lithium Carbonate 300 MG CAPSULE PO SCH ×3 (08:44→20:47)
[2016-10-01] MEDS: amLODIPine 5 MG TABLET PO SCH (08:44)
[2016-10-01] MEDS: Cholecalciferol (D-3) 1,000 UNIT TABLET PO SCH (08:46)
[2016-10-01] MEDS: Thiamine (B-1) 100 MG TABLET PO SCH (08:46)
[2016-10-01] MEDS: Folic Acid 1 MG TABLET PO SCH (08:46)
[2016-10-01] MEDS: clonazePAM 0.5 MG TABLET PO SCH (08:46)
[2016-10-01] MEDS: (Cyanocobalamin (Vitamin B-12) [Vitamin B-12] 100 MCG PO SCH (08:48)
--- NOTE | 2016-10-01 13:00 | Psychiatry Progress Note ---
Date of Encounter: 10/01/16 Time of Encounter: 12:35 Subjective Interval history: Patient seen today , case discussed with team his depression is better as per him but stil no good plan , wants to go home , he is aware his roommates drink and high risk for him to relapse and non compliant with medications, as per him i forget , i had been drinking and using crack and cocain. he has poor insight about his substance use. he still feels lot of time better of not alive and waste of space. his lithium level was low on 09/26 and also his depakote level. he is still dysphoric and denies suicidal ideation. sleep not good last night, as per him seroquel helped him more. will dc latuda and add seroquel 100 mg hs. will increase lithium and depakote and repeat levels. his latuda was tapered down recently . Review of Systems Psychiatric: Reports: depression, anxiety, anhedonia, difficulty concentrating, hopelessness, irritability. Denies: suicidal ideation, auditory hallucinations , visual hallucinations Objective: Exam Patient orientation: Yes Person, Yes Time, Yes Place Level of alertness: Alert Patient appearance: Appropriate Behavior: calm, cooperative, withdrawn Psychomotor activity: Slowed Eye contact: Minimal Contact Mood description: Euthymic/stable, Anxious Affect description: dysphoric, incongruent with mood Speech pattern: Slowed Speech volume: Soft/Quiet Thought process: Intact Thought content: Yes Guilt Judgment: Limited Insight: Partial Results - Vital Signs Vital Signs: Temp Pulse Resp BP Pulse Ox 98.2 F 94 16 135/93 96 10/01/16 08:59 10/01/16 08:59 10/01/16 08:59 10/01/16 08:59 09/24/16 07:30 Assessment and Plan (1) Alcoholism with alcohol dependence Current visit: No Status: Chronic Plan: Continue hospitalization, Close observation, Suicide Precautions per unit protocol, Encourage participation in unit milieu, Group Therapy, Monitor sleep, Monitor appetite, Family/Supportive other meeting Risks, benefits, side effects, alternatives discussed w/pt: Yes Patient agreeable to treatment: Yes Qualifiers: Substance use status: unspecified alcohol-induced disorder Qualified Code(s ): F10.29 - Alcohol dependence with unspecified alcohol-induced disorder (2) Anxiety Current visit: No Status: Acute Plan: Continue hospitalization, Close observation, Suicide Precautions per unit protocol, Encourage participation in unit milieu, Group Therapy, Monitor sleep, Monitor appetite Risks, benefits, side effects, alternatives discussed w/pt: Yes Patient agreeable to treatment: Yes (3) Bipolar disorder with severe depression Current visit: No Status: Acute Plan: Continue hospitalization, Close observation, Suicide Precautions per unit protocol, Encourage participation in unit milieu, Group Therapy, Monitor sleep, Monitor appetite, Family/Supportive other meeting Risks, benefits, side effects, alternatives discussed w/pt: Yes Patient agreeable to treatment: Yes Consult Discharge Plan - Plan Referrals: [facility] [Outside] (You will see Prerna Henriquez for mental health counseling on 10/09/2016 at 10:00am. You will also see Dr. Anguiano on 10/18/2016 at 6:30pm.)
[2016-10-01] MEDS: hydrOXYzine pamoate 25 MG CAPSULE PO PRN (15:16)
[2016-10-01] MEDS: Divalproex (12 HR) 500 MG TABLET PO SCH ×2 (20:46→20:47)
[2016-10-01] MEDS: Nicotine 2 MG GUM BC PRN (20:47)
[2016-10-02] MEDS: BuPROPion SR (12 HR) 150 MG TABLET PO SCH (09:48)
[2016-10-02] MEDS: Thiamine (B-1) 100 MG TABLET PO SCH (09:48)
[2016-10-02] MEDS: Folic Acid 1 MG TABLET PO SCH (09:49)
[2016-10-02] MEDS: Lithium Carbonate 300 MG CAPSULE PO SCH ×3 (09:50→20:47)
[2016-10-02] MEDS: clonazePAM 0.5 MG TABLET PO SCH (09:54)
[2016-10-02] MEDS: amLODIPine 5 MG TABLET PO SCH (09:54)
[2016-10-02] MEDS: (Cyanocobalamin (Vitamin B-12) [Vitamin B-12] 100 MCG PO SCH (09:55)
[2016-10-02] MEDS: Cholecalciferol (D-3) 1,000 UNIT TABLET PO SCH (09:55)
--- NOTE | 2016-10-02 12:41 | Psychiatry Progress Note ---
Date of Encounter: 10/02/16 Time of Encounter: 12:30 Subjective Interval history: Patient seen today and case d/w treatment team , he is showing improvement. states i feel like i can think more clearly. aware of klonopin taper, and d/w him about tolerance and dependence , agreed with plan to dc klonopin. he is sleeping better with seroquel and will add seroquel 100 mghs for sleep , anxiety and moods, he agreed to take it as it haS HELPED HIM IN PAST. HIS LITHIUM WAS INCREASED TO 900 MG AND LEVEL STILL 0.4 Depakote was also increased secondary to low level, he denies side effects. Patient is agreeing to take Naltrexone as he is concerned about remaining sober , will prescribe naltrexone 50 mg. side effects exp to patient. Review of Systems Psychiatric: Reports: depression, anxiety, difficulty concentrating. Denies: suicidal ideation, auditory hallucinations, visual hallucinations Objective: Exam Patient orientation: Yes Person, Yes Time, Yes Place Level of alertness: Alert Patient appearance: Appropriate Behavior: cooperative, withdrawn Psychomotor activity: Normal Eye contact: Maintains Eye Contact Mood description: Euthymic/stable Affect description: congruent with mood Speech pattern: Normal rate Speech volume: Soft/Quiet Thought process: Slowed Thinking Thought content: Yes Intact Judgment: Fair Insight: Partial Results - Vital Signs Vital Signs: Temp Pulse Resp BP Pulse Ox 97.3 F L 84 16 121/88 96 10/02/16 09:00 10/02/16 09:00 10/02/16 09:00 10/02/16 09:00 09/24/16 07:30 - Drug Levels and Toxicology Drug Levels and Toxicology: Drug Levels and Toxicity 10/02/16 09:34 [place] 0.4 L - Labs Labs: Laboratory Results - last 24 hr 10/02/16 09:34 [place] 0.4 L Assessment and Plan (1) Bipolar disorder with severe depression Current visit: No Status: Acute Risks, benefits, side effects, alternatives discussed w/pt: Yes Patient agreeable to treatment: Yes (2) Alcoholism with alcohol dependence Current visit: No Status: Chronic Risks, benefits, side effects, alternatives discussed w/pt: Yes Patient agreeable to treatment: Yes Qualifiers: Substance use status: unspecified alcohol-induced disorder Qualified Code(s ): F10.29 - Alcohol dependence with unspecified alcohol-induced disorder (3) Anxiety Current visit: No Status: Acute Risks, benefits, side effects, alternatives discussed w/pt: Yes Patient agreeable to treatment: Yes Consult Discharge Plan - Plan Referrals: [facility] [Outside] (You are going into residential substance abuse treatment at [facility] on discharge from the hospital. While there, you will be seen daily by the clinic counselors and case liner, both individually and in group. Your mental health treatment needs will be addressed concurrently. You will see Prerna Henriquez for mental health counseling on 10/09/2016 at 10:00am. You will also see Dr. Anguiano on 10/18/2016 at 6:30pm.)
[2016-10-02] MEDS: Divalproex (12 HR) 500 MG TABLET PO SCH ×2 (20:48)
--- NOTE | 2016-10-03 08:40 | Psychiatry Progress Note ---
Date of Encounter: 10/03/16 Time of Encounter: 08:25 Subjective Interval history: Patient seen today , being discharged today . states my moods are much better, i feel these medicines will work , i am dealing with this for long time. denies any psychosis., depression stable, i only get depress when i think about my kids as i donot see them that often. He has shown improvement and has been compliant, denies any side effects. pt stable to be discharged to inpatient rehab. will add naltrexone 50 mg for his substance use. Review of Systems Psychiatric: Reports: anxiety, difficulty concentrating. Denies: suicidal ideation, auditory hallucinations, visual hallucinations Objective: Exam Patient orientation: Yes Person, Yes Time, Yes Place Level of alertness: Alert Patient appearance: Appropriate Behavior: calm, cooperative Psychomotor activity: Normal Eye contact: Maintains Eye Contact Mood description: Anxious Affect description: congruent with mood Speech pattern: Normal rate Speech volume: Normal Thought process: Intact Thought content: Yes Intact Judgment: Fair Insight: Partial Results - Vital Signs Vital Signs: Temp Pulse Resp BP Pulse Ox 97.8 F 87 16 137/90 96 10/02/16 21:00 10/02/16 21:00 10/02/16 21:00 10/02/16 21:00 09/24/16 07:30 - Drug Levels and Toxicology Drug Levels and Toxicology: Drug Levels and Toxicity 10/02/16 09:34 [place] 0.4 L - Labs Labs: Laboratory Results - last 24 hr 10/02/16 09:34 [place] 0.4 L Assessment and Plan (1) Bipolar disorder with severe depression Current visit: No Status: Acute Risks, benefits, side effects, alternatives discussed w/pt: Yes Patient agreeable to treatment: Yes (2) Alcoholism with alcohol dependence Current visit: No Status: Chronic Risks, benefits, side effects, alternatives discussed w/pt: Yes Patient agreeable to treatment: Yes Qualifiers: Substance use status: unspecified alcohol-induced disorder Qualified Code(s ): F10.29 - Alcohol dependence with unspecified alcohol-induced disorder (3) Anxiety Current visit: No Status: Acute Risks, benefits, side effects, alternatives discussed w/pt: Yes Patient agreeable to treatment: Yes Consult Discharge Plan - Plan Referrals: [facility] [Outside] (You are going into residential substance abuse treatment at [facility] on discharge from the hospital. While there, you will be seen daily by the clinic counselors and case mgr, both individually and in group. Your mental health treatment needs will be addressed concurrently. You will see Prerna Henriquez for mental health counseling on 10/09/2016 at 10:00am. You will also see Dr. Anguiano on 10/18/2016 at 6:30pm.)
--- NOTE | 2016-10-03 08:52 | Discharge Summary ---
Date of Encounter: 10/04/16 Time of Encounter: 08:25 Diagnosis - Discharge Diagnosis (1) Bipolar disorder with severe depression Status: Acute Comments: patient is at his baseline (2) Alcoholism with alcohol dependence Status: Chronic Qualifiers: Substance use status: unspecified alcohol-induced disorder Qualified Code(s ): F10.29 - Alcohol dependence with unspecified alcohol-induced disorder (3) Anxiety Status: Acute Medications - Discharge Medications Prescriptions: BuPROPion SR (12 HR) [Wellbutrin SR] 150 mg PO BID #90 Divalproex (12 HR) [Depakote (12 HR)] 500 mg PO HS #30 Divalproex (12 HR) [Depakote (12 HR)] 1,000 mg PO HS #60 [place] Carbonate 300 mg PO TID #90 Naltrexone HCl [Revia] 50 mg PO DAILY #30 Quetiapine Fumarate [Seroquel] 100 mg PO HS #30 tab Cyanocobalamin (Vitamin B-12) [Vitamin B-12] 100 mcg PO DAILY #90 tablet [Rx] Ergocalciferol (VITAMIN D2) [Drisdol (50,000 Unit)] 50,000 unit PO 2XW #20 capsule 02/28/16 [Rx] Thiamine HCl 250 mg PO DAILY #30 tablet 02/28/16 [Rx] amLODIPine [Norvasc] 10 mg PO DAILY tablet 03/05/16 [Rx] Folic Acid 2 mg PO DAILY 07/13/16 [History] Atorvastatin Calcium [Lipitor] 80 mg PO HS 09/24/16 [History] Carvedilol Phosphate [Coreg Cr] 10 mg PO DAILY 09/24/16 [History] BuPROPion SR (12 HR) [Wellbutrin SR] 150 mg PO BID #90 10/03/16 [Rx] Carvedilol [Coreg] 3.125 mg PO BIDWM tab 10/03/16 [Rx] Cholecalciferol (D-3) [Vitamin D] 1,000 unit PO DAILY tab 10/03/16 [Rx] Divalproex (12 HR) [Depakote (12 HR)] 1,000 mg PO HS #0 10/03/16 [Rx] Divalproex (12 HR) [Depakote (12 HR)] 1,000 mg PO HS #60 10/03/16 [Rx] Divalproex (12 HR) [Depakote (12 HR)] 500 mg PO HS #30 10/03/16 [Rx] [place] Carbonate 300 mg PO TID #90 10/03/16 [Rx] Naltrexone HCl [Revia] 50 mg PO DAILY #30 10/03/16 [Rx] Quetiapine Fumarate [Seroquel] 100 mg PO HS #30 tab 10/03/16 [Rx] amLODIPine [Norvasc] 10 mg PO DAILY tab 10/03/16 [Rx] Allergies No Known Allergies Allergy (Verified 09/23/16 22:26) Results Procedures and tests throughout hospitalization: Completed Lab Orders Category Date Time Status Hgb A1C Routine Lab 09/27/16 11:52 Completed [place] Routine Lab 09/26/16 06:51 Completed [place] Routine Lab 10/02/16 09:34 Completed Provider Date of admission: 09/24/16 15:10 Primary care physician: PCP NONE Assessment and Plan - Patient/Caregiver Discharge Instructions Diet: regular diet - Follow up Plan Follow up with: [facility] [Outside] (You are going into residential substance abuse treatment at [facility] on discharge from the hospital. While there, you will be seen daily by the clinic counselors and major case detective, both individually and in group. Your mental health treatment needs will be addressed concurrently. You will see Prerna Henriquez for mental health counseling on 10/09/2016 at 10:00am. You will also see Dr. Anguiano on 10/18/2016 at 6:30pm.) Functional capacity at discharge: independent ambulation Overall status at discharge: patient is progressing back to baseline Disposition: Transfer Inpatient Rehab Fac Hospital Course Hospital course: Mr. Suarez is a 36 year old male with history of Bipolar and Alcohol Dependence and anxiety. pt"s medications were changed and dose increased of lithium , he has shown improvement and is stable regarding his moods and anxiety , he is not suicidal. Latuda was discontinued and seroquel given low dose at hs. depakote was added to treatment plan and lithium increased , his level is still 0.4 , need to repeat after on it for week , pt aware., will add Naltrexone to his plan 50 mg and meds will be called in. pt at present not in imenent danger to self or others. Time spent discussing smoking cessation with patient: 3 to 10 minutes Does patient wish to continue nicotine replacement upon disc: No - Time Spent with Patient Total time spent providing and/or coordinating discharge services: Greater than 30 minutes (patient will be discharged to rehab.) Quality - Multiple Antipsychotics Patient discharged on 2 or more antipsychotic medications: No Procedures - Procedures Procedures: Medication Management, Crisis Stabilization, Supportive Therapy, Group Therapy, Psychoeducational Therapy Mental Status Exam - Mental Status Exam Patient orientation: Yes Person, Yes Time, Yes Place Level of alertness: Alert Patient appearance: Appropriate Behavior: calm, cooperative Psychomotor activity: Normal Eye contact: Maintains Eye Contact Mood description: Euthymic/stable, Anxious Affect description: congruent with mood Speech pattern: Normal rate Speech Volume: Normal Thought process: Intact Thought Content: Yes Intact Judgment: Fair Insight: Partial
[2016-10-03] MEDS: Thiamine (B-1) 100 MG TABLET PO SCH (09:02)
[2016-10-03] MEDS: Cholecalciferol (D-3) 1,000 UNIT TABLET PO SCH (09:02)
[2016-10-03] MEDS: BuPROPion SR (12 HR) 150 MG TABLET PO SCH (09:02)
[2016-10-03] MEDS: Lithium Carbonate 300 MG CAPSULE PO SCH ×2 (09:03→15:15)
[2016-10-03] MEDS: amLODIPine 5 MG TABLET PO SCH (09:03)
[2016-10-03] MEDS: Folic Acid 1 MG TABLET PO SCH (09:03)
[2016-10-03] MEDS: (Cyanocobalamin (Vitamin B-12) [Vitamin B-12] 100 MCG PO SCH (09:10)
[2016-10-03 10:43] VITALS: BP 135/84
[2016-10-04] MEDS ORDERED: (Naltrexone Hcl [Revia] 50 MG) PO SCH (09:00)
[2016-10-04 16:32] LABS: Valproate Free 10 ug/mL (7-23); Valproate Total 82 ug/mL (50-125)
[2016-10-05 07:17] LABS: Valproate % Free 12 % (5-18)
== END 2016-10-03 15:30 | DRG 812 ==
LOC: EMEROO 22:17 → SUATTDRO 09-24 15:10 → 1ANU 09-24 15:10
PROVIDERS: ADMIT Student in an Organized Health Care Education/Training Program; ATTEND Psychiatry & Neurology Psychiatry

== ENCOUNTER 2019-09-30 01:00 | Observation (INO) ==
[2019-09-30] MEDS ORDERED: Isovue-370 500 ML BOTTLE IVP ONE (01:20)
[2019-09-30 02:07] LABS: Basophils % 0.4 %; Eosinophils # 0.2 K/mcL (0.0-0.6); Eosinophils % 2.5 %; Hematocrit 43.9 % (37.5-50.1); Hemoglobin 14.9 g/dL (12.9-16.9); Immature Granulocytes % 0.4 % (0-4); Lymphocytes # 2.4 K/mcL (0.6-4.6); Lymphocytes % 28.9 %; Mean Corpuscular HGB Conc 33.9 g/dL (31.6-35.5); Mean Corpuscular Volume 88.3 fL (83.0-100.0); Mean Platelet Volume 10.3 fL (9.4-12.4); Monocytes # 0.8 K/mcL (0.0-1.3); Monocytes % 9.1 %; Platelet Count 144 K/mcL (140-400); Red Blood Count 4.97 M/mcL (4.19-5.50); Segmented Neutrophils % 58.7 %; White Blood Count 8.4 K/mcL (4.3-11.1)
[2019-09-30 02:22] LABS: BUN/Creatinine Ratio 27 (6-26); Blood Urea Nitrogen 25 mg/dL (6-20); Calcium 9.2 mg/dL (8.6-10.3); Carbon Dioxide 23 mEq/L (23-29); Chloride 107 mEq/L (98-107); Glucose 112 mg/dL (70-105); Osmolality,Calculated 293 (280-300); Potassium 3.8 mEq/L (3.5-5.1); Sodium 139 mEq/L (136-145); eGFR For African Americans > 60 (> 60); eGFR For Non-African Americans > 60 (> 60)
[2019-09-30 02:30] LABS: Bilirubin,Urine Negative (Negative); Blood,Urine Negative (Negative); Clarity,Urine Clear (Clear); Color,Urine Light-Yellow (Yellow); Glucose,Urine (UA) Normal (Normal); Ketones,Urine Negative (Negative); Leukocyte Esterase,Urine Negative (Negative); Mucus,Urine Few per lpf (None-Few); Nitrite,Urine Negative (Negative); Protein,Urine Trace mg/dL (Neg-Trace); RBC,Urine 0-3 per hpf (0-3); Specific Gravity,Urine > 1.030 (1.010-1.025); Squamous Epithelial Cell,Urine Few per hpf (None-Few); Urobilinogen,Urine Normal (Normal); WBC,Urine 0-3 per hpf (0-3)
[2019-09-30] MEDS ORDERED: Vancomycin 2,000 MG/520 ML IV.SOLN IVPB ONE (03:17)
[2019-09-30] MEDS ORDERED: Piperacillin/Tazobactam 3.375 GM in 0.9 % Sodium Chloride Mini Bag 100 ML IVPB ONE (03:18)
[2019-09-30] MEDS ORDERED: Ketorolac 15 MG/ML VIAL IVP ONE (03:40)
[2019-09-30 04:01] LABS: Alanine Aminotransferase 50 Units/L (7-52); Albumin 4.6 g/dL (3.5-5.7); Albumin/Globulin Ratio 2.4 (1.1-2.2); Alkaline Phosphatase 88 Units/L (34-104); Aspartate Amino Transferase 40 Units/L (13-39); Bilirubin,Indirect 0.7 mg/dL (0.0-1.0); Bilirubin,Total 0.7 mg/dL (0.3-1.0); Globulin 1.9 g/dL (2.4-3.5); Total Protein 6.5 g/dL (6.4-8.9)
[2019-09-30] MEDS ORDERED: Naloxone 0.4 MG/ML INJ IVP PRN (04:15)
[2019-09-30] MEDS ORDERED: *HR* Promethazine 25 MG/ML VIAL IVP PRN (04:15)
[2019-09-30] MEDS ORDERED: Acetaminophen 325 MG TABLET PO PRN (04:15)
[2019-09-30] MEDS ORDERED: Vancomycin 1,750 MG in 0.9 % Sodium Chloride 250 ML IVPB SCH (05:00)
[2019-09-30 05:33] LABS: Chlamydia Trachomatis DNA Ur NOT DETECTED (Not Detect)
[2019-09-30] MEDS ORDERED: Azithromycin 500 MG in 0.9 % Sodium Chloride 250 ML IVPB SCH (06:00)
[2019-09-30] MEDS: 0.9 % Sodium Chloride 1,000 ML IVC SCH ×2 (06:08→14:30)
[2019-09-30 07:27] LABS: HIV-1&2 Antibody & p24 Ag Nonreactive (Nonreactive)
[2019-09-30] MEDS: Vancomycin 1,500 MG/265 ML IV.SOLN IVPB SCH ×2 (11:43→20:36)
[2019-09-30] MEDS: *HR* OxyCODONE/APAP 7.5/325 TABLET PO PRN ×2 (11:43→19:01)
[2019-09-30] MEDS ORDERED: Piperacillin/Tazobactam 3.375 GM in 0.9 % Sodium Chloride Mini Bag 100 ML IVPB SCH (12:00)
[2019-09-30] MEDS: *HR* Heparin 5,000 UNIT/ML VIAL SQ SCH (15:25)
[2019-09-30] MEDS: carvediloL 6.25 MG TABLET PO SCH (17:07)
[2019-09-30] MEDS: Lithium Carbonate ER 450 MG TABLET.ER PO SCH (20:27)
[2019-10-01 02:29] LABS: Basophils % 0.2 %; Eosinophils # 0.2 K/mcL (0.0-0.6); Eosinophils % 3.1 %; Hematocrit 40.7 % (37.5-50.1); Hemoglobin 13.6 g/dL (12.9-16.9); Immature Granulocytes % 0.4 % (0-4); Lymphocytes # 2.1 K/mcL (0.6-4.6); Mean Corpuscular HGB Conc 33.4 g/dL (31.6-35.5); Mean Corpuscular Hemoglobin 29.7 pg (28.0-33.3); Mean Corpuscular Volume 88.9 fL (83.0-100.0); Mean Platelet Volume 10.1 fL (9.4-12.4); Monocytes # 0.4 K/mcL (0.0-1.3); Monocytes % 6.8 %; Neutrophils # 2.8 K/mcL (1.6-8.9); Platelet Count 140 K/mcL (140-400); Red Blood Count 4.58 M/mcL (4.19-5.50); Red Cell Distribution Width 11.9 % (11.5-14.5); Segmented Neutrophils % 51.5 %; White Blood Count 5.5 K/mcL (4.3-11.1)
[2019-10-01 02:50] LABS: BUN/Creatinine Ratio 19 (6-26); Blood Urea Nitrogen 13 mg/dL (6-20); Calcium 8.2 mg/dL (8.6-10.3); Carbon Dioxide 22 mEq/L (23-29); Chloride 109 mEq/L (98-107); Glucose 95 mg/dL (70-105); Osmolality,Calculated 284 (280-300); Sodium 137 mEq/L (136-145); eGFR For African Americans > 60 (> 60); eGFR For Non-African Americans > 60 (> 60)
[2019-10-01] MEDS: Vancomycin 1,500 MG/265 ML IV.SOLN IVPB SCH (05:35)
[2019-10-01] MEDS: *HR* Heparin 5,000 UNIT/ML VIAL SQ SCH (05:41)
[2019-10-01 07:55] VITALS: BP 129/87
[2019-10-01] MEDS: carvediloL 6.25 MG TABLET PO SCH (08:52)
[2019-10-01] MEDS: Lithium Carbonate ER 450 MG TABLET.ER PO SCH (08:52)
[2019-10-01] MEDS: *HR* OxyCODONE/APAP 7.5/325 TABLET PO PRN (08:53)
[2019-10-01] MEDS ORDERED: amLODIPine 5 MG TABLET PO SCH (09:00)
[2019-10-01] MEDS ORDERED: BuPROPion XL (24 HR) 150 MG TABLET PO SCH (09:00)
[2019-10-01 14:39] LABS: HSV 1 Glycoprotein G IgG 0.26 IV (<=0.89); HSV 2 Glycoprotein G IgG 0.07 IV (<=0.89)
== END 2019-10-01 10:53 | disposition home or self-care (01) ==
LOC: 3BNU 01:00 → EMEROOARM 01:00 → 3BNU 04:37
PROVIDERS: ADMIT Student in an Organized Health Care Education/Training Program; ATTEND Student in an Organized Health Care Education/Training Program

== ENCOUNTER 2019-10-07 15:23 | Observation (INO) ==
[2019-10-07 16:04] LABS: Amphetamine Screen,Urine Negative ng/mL (Cutoff=1000); Barbiturate Screen,Urine Negative ng/mL (Cutoff=200); Benzodiazepines Screen,Urine Negative ng/mL (Cutoff=200); Cannabinoid Screen,Urine Negative ng/mL (Cutoff = 50); Cocaine Screen,Urine Negative ng/mL (Cutoff= 300); Opiate Screen,Urine Negative ng/mL (Cutoff=300); Phencyclidine Screen,Urine Negative ng/mL (Cutoff=25)
[2019-10-07 16:15] LABS: Bilirubin,Urine Negative (Negative); Blood,Urine Negative (Negative); Clarity,Urine Clear (Clear); Color,Urine Light-Yellow (Yellow); Glucose,Urine (UA) Normal (Normal); Ketones,Urine Negative (Negative); Leukocyte Esterase,Urine Negative (Negative); Nitrite,Urine Negative (Negative); Protein,Urine Negative (Neg-Trace); Specific Gravity,Urine 1.019 (1.010-1.025); Urobilinogen,Urine Normal (Normal)
[2019-10-07 16:25] LABS: Acetaminophen < 10 mcg/mL (10-20); BUN/Creatinine Ratio 16 (6-26); Blood Urea Nitrogen 13 mg/dL (6-20); Calcium 9.5 mg/dL (8.6-10.3); Carbon Dioxide 23 mEq/L (23-29); Chloride 106 mEq/L (98-107); Chol/HDL Ratio 7.3 (0-4.9); Cholesterol 176 mg/dL (< 200); Ethanol < 10 mg/dL (Less than 10); Glucose 103 mg/dL (70-105); HDL Cholesterol 24 mg/dL (40-59); Osmolality,Calculated 282 (280-300); Potassium 3.9 mEq/L (3.5-5.1); Salicylate < 2.5 mg/dL (15.0-30.0); Sodium 136 mEq/L (136-145); Triglycerides 947 mg/dL (< 150); eGFR For African Americans > 60 (> 60); eGFR For Non-African Americans > 60 (> 60)
[2019-10-07 16:27] LABS: Estimated Average Glucose 105 mg/dl
[2019-10-07 17:14] LABS: Basophils % 0.3 %; Eosinophils # 0.2 K/mcL (0.0-0.6); Eosinophils % 2.2 %; Hematocrit 43.4 % (37.5-50.1); Hemoglobin 14.9 g/dL (12.9-16.9); Immature Granulocytes % 0.4 % (0-4); Lymphocytes # 1.8 K/mcL (0.6-4.6); Lymphocytes % 24.8 %; Mean Corpuscular HGB Conc 34.3 g/dL (31.6-35.5); Mean Corpuscular Volume 87.5 fL (83.0-100.0); Mean Platelet Volume 10.3 fL (9.4-12.4); Monocytes # 0.7 K/mcL (0.0-1.3); Monocytes % 8.7 %; Neutrophils # 4.7 K/mcL (1.6-8.9); Platelet Count 143 K/mcL (140-400); Red Blood Count 4.96 M/mcL (4.19-5.50); Red Cell Distribution Width 11.9 % (11.5-14.5); Segmented Neutrophils % 63.6 %; White Blood Count 7.4 K/mcL (4.3-11.1)
[2019-10-07] MEDS ORDERED: *HR* LORazepam 1 MG TABLET PO PRN (18:42)
[2019-10-07] MEDS ORDERED: Acetaminophen 325 MG TABLET PO PRN (18:42)
[2019-10-07] MEDS ORDERED: *HR* LORazepam 2 MG/ML VIAL IM PRN (18:42)
[2019-10-07] MEDS ORDERED: Haloperidol Lactate 5 MG/ML VIAL IM PRN (18:42)
[2019-10-07] MEDS ORDERED: Mag Hydrox/Al Hydrox/Simeth 30 ML UDC PO PRN (18:42)
[2019-10-07] MEDS ORDERED: haloperidoL 5 MG TABLET PO PRN (18:42)
[2019-10-07] MEDS ORDERED: MOM Conc 10 ML UD.LIQ PO PRN (18:42)
[2019-10-07] MEDS: Doxycycline 100 MG CAPSULE PO SCH (21:34)
[2019-10-07] MEDS: Lithium Carbonate ER 450 MG TABLET.ER PO SCH (21:34)
[2019-10-07] MEDS: hydrOXYzine pamoate 25 MG CAPSULE PO PRN (21:35)
[2019-10-07] MEDS: carvediloL 6.25 MG TABLET PO SCH (21:35)
[2019-10-07] MEDS: traZODone 50 MG TABLET PO PRN (21:35)
[2019-10-08] MEDS: BuPROPion XL (24 HR) 150 MG TABLET PO SCH (08:52)
[2019-10-08] MEDS: amLODIPine 5 MG TABLET PO SCH (08:52)
[2019-10-08] MEDS: carvediloL 6.25 MG TABLET PO SCH ×2 (08:52→20:13)
[2019-10-08] MEDS: Doxycycline 100 MG CAPSULE PO SCH ×2 (08:52→20:12)
[2019-10-08] MEDS: Lithium Carbonate ER 450 MG TABLET.ER PO SCH ×2 (08:52→20:11)
[2019-10-08] MEDS: Nicotine 2 MG GUM BC PRN (14:16)
[2019-10-08] MEDS: traZODone 50 MG TABLET PO PRN (20:12)
[2019-10-08] MEDS: hydrOXYzine pamoate 25 MG CAPSULE PO PRN (20:13)
[2019-10-09] MEDS: BuPROPion XL (24 HR) 150 MG TABLET PO SCH (08:54)
[2019-10-09] MEDS: amLODIPine 5 MG TABLET PO SCH (08:54)
[2019-10-09] MEDS: Doxycycline 100 MG CAPSULE PO SCH ×2 (08:55→20:37)
[2019-10-09] MEDS: Lithium Carbonate ER 450 MG TABLET.ER PO SCH ×2 (08:55→20:38)
[2019-10-09] MEDS: carvediloL 6.25 MG TABLET PO SCH ×2 (08:56→20:38)
[2019-10-09] MEDS: Nicotine 2 MG GUM BC PRN (12:58)
[2019-10-09] MEDS: traZODone 50 MG TABLET PO PRN (20:37)
[2019-10-09] MEDS: hydrOXYzine pamoate 25 MG CAPSULE PO PRN (20:37)
[2019-10-10] MEDS: Lithium Carbonate ER 450 MG TABLET.ER PO SCH ×2 (09:10→20:06)
[2019-10-10] MEDS: carvediloL 6.25 MG TABLET PO SCH ×2 (09:10→20:06)
[2019-10-10] MEDS: BuPROPion XL (24 HR) 150 MG TABLET PO SCH (09:10)
[2019-10-10] MEDS: Doxycycline 100 MG CAPSULE PO SCH (09:10)
[2019-10-10] MEDS: amLODIPine 5 MG TABLET PO SCH (09:10)
[2019-10-10] MEDS: traZODone 50 MG TABLET PO PRN (20:05)
[2019-10-10] MEDS: hydrOXYzine pamoate 25 MG CAPSULE PO PRN (20:06)
[2019-10-11] MEDS: amLODIPine 5 MG TABLET PO SCH (09:45)
[2019-10-11] MEDS: carvediloL 6.25 MG TABLET PO SCH ×2 (09:45→20:22)
[2019-10-11] MEDS: BuPROPion XL (24 HR) 150 MG TABLET PO SCH (09:45)
[2019-10-11] MEDS: Lithium Carbonate ER 450 MG TABLET.ER PO SCH ×2 (09:45→20:22)
[2019-10-11] MEDS: traZODone 50 MG TABLET PO PRN (20:22)
[2019-10-12] MEDS: carvediloL 6.25 MG TABLET PO SCH (09:07)
[2019-10-12] MEDS: Lithium Carbonate ER 450 MG TABLET.ER PO SCH (09:08)
[2019-10-12] MEDS: BuPROPion XL (24 HR) 150 MG TABLET PO SCH (09:09)
[2019-10-12] MEDS: amLODIPine 5 MG TABLET PO SCH (09:09)
[2019-10-12 10:02] VITALS: BP 138/93
== END 2019-10-12 15:45 | disposition other institution (70) ==
LOC: 1ANU 15:23 → EMEROOARM 15:23 → 1ANU 19:10
PROVIDERS: ADMIT Psychiatry & Neurology Psychiatry; ATTEND Psychiatry & Neurology Psychiatry

== ENCOUNTER 2021-06-26 14:23 | Inpatient (IN) ==
[2021-06-26 15:13] LABS: Bilirubin,Urine Negative (Negative); Blood,Urine Negative (Negative); Clarity,Urine Clear (Clear); Color,Urine Light-Yellow (Yellow); Glucose,Urine (UA) Normal (Normal); Ketones,Urine Negative (Negative); Leukocyte Esterase,Urine Trace (Negative); Mucus,Urine Few per lpf (None-Few); Nitrite,Urine Negative (Negative); Protein,Urine Trace mg/dL (Neg-Trace); RBC,Urine 0-3 per hpf (0-3); Specific Gravity,Urine 1.024 (1.010-1.025); Urobilinogen,Urine Normal (Normal)
[2021-06-26 15:14] LABS: Hemoglobin 15.3 g/dL (12.9-16.9); Mean Corpuscular Hemoglobin 29.3 pg (28.0-33.3); Red Blood Count 5.22 M/mcL (4.19-5.50)
[2021-06-26 15:16] LABS: Basophils % 0.1 %; Eosinophils # 0.1 K/mcL (0.0-0.6); Eosinophils % 1.9 %; Hematocrit 43.2 % (37.5-50.1); Immature Granulocytes % 0.3 % (0-4); Immature Platelets 3.8 % (1.1-6.1); Lymphocytes # 1.5 K/mcL (0.6-4.6); Lymphocytes % 22.1 %; Mean Corpuscular HGB Conc 35.4 g/dL (31.6-35.5); Mean Corpuscular Volume 82.8 fL (83.0-100.0); Mean Platelet Volume 9.5 fL (9.4-12.4); Monocytes # 0.5 K/mcL (0.0-1.3); Monocytes % 7.3 %; Neutrophils # 4.6 K/mcL (1.6-8.9); Platelet Count 119 K/mcL (140-400); Segmented Neutrophils % 68.3 %; White Blood Count 6.7 K/mcL (4.3-11.1)
[2021-06-26 15:45] LABS: Amphetamine Screen,Urine Negative ng/mL (Cutoff=1000); Barbiturate Screen,Urine Negative ng/mL (Cutoff=200); Benzodiazepines Screen,Urine Negative ng/mL (Cutoff=200); Cannabinoid Screen,Urine Positive ng/mL (Cutoff = 50); Cocaine Screen,Urine Negative ng/mL (Cutoff= 300); Opiate Screen,Urine Negative ng/mL (Cutoff=300); Phencyclidine Screen,Urine Negative ng/mL (Cutoff=25)
[2021-06-26 15:48] LABS: Acetaminophen < 10 mcg/mL (10-20); BUN/Creatinine Ratio 19 (6-26); Blood Urea Nitrogen 20 mg/dL (6-20); Calcium 9.5 mg/dL (8.6-10.3); Carbon Dioxide 24 mEq/L (23-29); Chloride 107 mEq/L (98-107); Ethanol < 10 mg/dL (Less than 10); Glucose 135 mg/dL (70-105); Osmolality,Calculated 291 (280-300); Potassium 3.7 mEq/L (3.5-5.1); Salicylate < 2.5 mg/dL (15.0-30.0); Sodium 138 mEq/L (136-145); eGFR For African Americans > 60 (> 60); eGFR For Non-African Americans > 60 (> 60)
[2021-06-26 15:56] LABS: Troponin I < 0.03 ng/mL (< 0.04)
[2021-06-26 18:43] LABS: Influenza A PCR Negative (Negative); Influenza B PCR Negative (Negative); Resp. Syncytial Virus PCR Negative (Negative)
[2021-06-26 18:44] LABS: SARS-CoV-2 by PCR (In House) Negative (Negative)
[2021-06-26] MEDS ORDERED: Acetaminophen 325 MG TABLET PO PRN (18:58)
[2021-06-26] MEDS ORDERED: Mag Hydrox/Al Hydrox/Simeth 30 ML UDC PO PRN (18:58)
[2021-06-26] MEDS ORDERED: Haloperidol Lactate 5 MG/ML VIAL IM PRN (18:58)
[2021-06-26] MEDS ORDERED: *HR* LORazepam 1 MG TABLET PO PRN (18:58)
[2021-06-26] MEDS ORDERED: MOM Conc 10 ML UD.LIQ PO PRN (18:58)
[2021-06-26] MEDS ORDERED: haloperidoL 5 MG TABLET PO PRN (18:58)
[2021-06-26] MEDS ORDERED: Ibuprofen 400 MG TABLET PO PRN (18:58)
[2021-06-26] MEDS ORDERED: hydrOXYzine pamoate 25 MG CAPSULE PO PRN (18:58)
[2021-06-26] MEDS ORDERED: *HR* LORazepam 2 MG/ML VIAL IM PRN (18:58)
[2021-06-26] MEDS ORDERED: traZODone 50 MG TABLET PO SCH (21:00)
[2021-06-26] MEDS: Lithium Carbonate ER 450 MG TABLET.ER PO SCH (21:17)
[2021-06-26] MEDS: carvediloL 6.25 MG TABLET PO SCH (21:18)
[2021-06-27] MEDS: carvediloL 6.25 MG TABLET PO SCH ×2 (09:27→16:33)
[2021-06-27] MEDS: Lithium Carbonate ER 450 MG TABLET.ER PO SCH ×2 (09:27→20:54)
[2021-06-27] MEDS: Cholecalciferol (D-3) 1,000 UNIT (25MCG) TABLET PO SCH (13:56)
[2021-06-27] MEDS: BuPROPion XL (24 HR) 150 MG TABLET PO SCH (13:56)
[2021-06-27] MEDS: Cyanocobalamin (B-12) 1,000 MCG TABLET PO SCH (13:56)
[2021-06-27] MEDS: hydrOXYzine pamoate 25 MG CAPSULE PO PRN ×2 (14:55→20:54)
[2021-06-27] MEDS: Nicotine 2 MG GUM BC PRN (14:55)
[2021-06-27] MEDS ORDERED: traZODone 50 MG TABLET PO SCH (21:00)
[2021-06-28 10:00] VITALS: BP 146/91; PULSE 78; TEMP 97.2; O2SAT 98
[2021-06-28] MEDS: Cholecalciferol (D-3) 1,000 UNIT (25MCG) TABLET PO SCH (10:16)
[2021-06-28] MEDS: BuPROPion XL (24 HR) 150 MG TABLET PO SCH (10:16)
[2021-06-28] MEDS: Lithium Carbonate ER 450 MG TABLET.ER PO SCH (10:16)
[2021-06-28] MEDS: Cyanocobalamin (B-12) 1,000 MCG TABLET PO SCH (10:16)
[2021-06-28] MEDS: carvediloL 6.25 MG TABLET PO SCH (10:17)
[2021-06-28] MEDS: Nicotine 2 MG GUM BC PRN (12:36)
[2021-06-28] MEDS: hydrOXYzine pamoate 25 MG CAPSULE PO PRN (15:10)
== END 2021-06-28 16:25 | disposition home or self-care (01) | DRG 885 ==
LOC: EMEROOARM 14:23 → 1ANU 18:53
PROVIDERS: ADMIT Psychiatry & Neurology Psychiatry; ATTEND Psychiatry & Neurology Psychiatry